=== PATIENT | male | born 1965 | race Two or more races ===

== ENCOUNTER 2019-08-03 01:24 | Inpatient (IN) | payer BC ==
[~2019-08-03] VITALS: Ht 167.6 cm; Wt 78.5 kg
[2019-08-03] MEDS ORDERED: SIMV-261 PO (04:12)
[2019-08-03] MEDS ORDERED: GLIM4 PO (04:12)
[2019-08-03] MEDS ORDERED: AZIT-84 PO (04:12)
[2019-08-03] MEDS ORDERED: METF-961 PO (04:12)
[2019-08-03] MEDS ORDERED: HYDR200T83 PO (04:12)
[2019-08-03] MEDS ORDERED: GABA-1181 PO (04:12)
[2019-08-03] MEDS ORDERED: PIOG30TA10 PO (04:12)
[2019-08-03] MEDS ORDERED: ASPI-1111 PO (04:12)
[2019-08-03 04:53] LABS: BASOPHILS % (AUTO) 0.3 % (0.0-2.0); EOSINOPHILS % (AUTO) 0 % (1.0-6.0); HEMATOCRIT 43.4 % (41-53); HEMOGLOBIN 14.6 g/dL (13.5-17.5); LYMPHOCYTES # (AUTO) 1.1 K/uL (1.0-4.8); LYMPHOCYTES % (AUTO) 18.2 % (22.0-44.0); MEAN CORPUSCULAR HEMOGLOBIN 30.5 pg (26.0-34.0); MEAN CORPUSCULAR HGB CONC 33.6 G/dL (31.0-37.0); MEAN CORPUSCULAR VOLUME 91 fL (80-100); MONOCYTES # (AUTO) 0.8 K/uL (0.1-1.0); MONOCYTES % (AUTO) 12.6 % (2.0-9.0); NEUTROPHILS # (AUTO) 4.2 K/uL (1.8-7.7); NEUTROPHILS % (AUTO) 68.9 % (40.0-70.0); PLATELET COUNT (AUTO) 319 K/uL (150-450); RED BLOOD CELL COUNT(AUTO) 4.78 MIL/uL (4.50-5.90); RED CELL DISTRIBUTION WIDTH 13.1 % (11.5-14.5)
[2019-08-03 04:57] LABS: D-DIMER 0.86 mg/L FEU (0.00-0.50); INR 1.1 (0.9-1.1); PROTHROMBIN TIME 11.3 SEC (9.4-11.6)
[2019-08-03 05:22] LABS: INFLUENZA TYPE A NEGATIVE FOR TYPE A (NEGATIVE); INFLUENZA TYPE B NEGATIVE FOR TYPE B (NEGATIVE)
[2019-08-03 05:27] LABS: ANION GAP 11 mmol/L (8-16); CALCIUM, TOTAL 8.6 mg/dL (8.8-10.5); CARBON DIOXIDE 26 mmol/L (22-29); CHLORIDE 98 mmol/L (98-107); CREATININE 0.87 mg/dL (0.60-1.30); GLOMERULAR FILTR. RATE CALC > 60 mL/min (>60); GLUCOSE,RANDOM 283 mg/dL (70-110); POTASSIUM 4.1 mmol/L (3.5-5.1); SODIUM SERUM 135 mmol/L (136-145); UREA NITROGEN, BLOOD 13 mg/dL (7-18)
[2019-08-03] MEDS ORDERED: CefTRIAXone 1 GM/DEXTROSE 50 ML IV ONE (05:45)
[2019-08-03] MEDS ORDERED: AZITHROMYCIN 500 MG/NS 250 ML IV ONE (05:45)
[2019-08-03 05:51] LABS: LACTIC ACID 2.3 mmol/L (0.4-2.0)
[2019-08-03 06:10] LABS: B-TYPE NATRIURETIC PEPTIDE 133 pg/mL (0-100)
[2019-08-03 06:11] LABS: ALANINE AMINOTRANSFERASE 109 U/L (12-78); ALBUMIN 2.4 g/dL (3.4-5.0); ALKALINE PHOSPHATASE 78 U/L (46-116); ASPARTATE AMINOTRANSFERASE 61 U/L (15-37); BILIRUBIN,TOTAL 0.4 mg/dL (0.1-1.0); C-REACTIVE PROTEIN QUANT 22.41 mg/dL (0.00-0.30); CREATINE KINASE, TOTAL ONLY 87 U/L (39-308); FERRITIN 4999 ng/mL (26-388); LACTATE DEHYDROGENASE 477 U/L (85-227); TOTAL PROTEIN, SERUM 7.2 g/dL (6.4-8.2)
[2019-08-03 08:00] VITALS: BP 120/80
[2019-08-03] MEDS ORDERED: DEXTROSE 50%-WATER 25 GM/50 ML SYRINGE IVP PRN (08:00)
[2019-08-03] MEDS: HYDROXYCHLOROQUINE SULFATE 200 MG TABLET PO SCH ×2 (08:20→21:07)
[2019-08-03] MEDS: FAMOTIDINE 20 MG TABLET PO SCH (09:00)
[2019-08-03] MEDS: DOCUSATE SODIUM 100 MG CAPSULE PO SCH ×2 (09:00→21:00)
[2019-08-03] MEDS: HEPARIN SODIUM,PORCINE 5,000 UNITS/ML VIAL SQ SCH ×2 (09:32→15:05)
[2019-08-03] MEDS: AZITHROMYCIN 500 MG/NS 250 ML IV SCH (09:32)
[2019-08-03 09:53] LABS: ABG A-A DIFF O2 588.4 mmHg (10-20.0); ABG BASE EXCESS -2.1 mmol/L (-2.0-3.0); ABG CARBOXYHEMOGLOBIN 0.7 % (0.0-1.5); ABG HCO3 23.8 mmol/L (22.0-26.0); ABG METHEMOGLOBIN 0.3 % (0.0-1.5); ABG OXYGEN CONTENT 19.5 mL/dL (15.0-23.0); ABG OXYGEN SATURATION 97.8 % (95.0-98.0); ABG OXYHEMOGLOBIN 96.8 % (94.0-100.0); ABG PCO2 29 mmHg (35-45); ABG TOTAL HEMOGLOBIN 14.3 G/dL (12.0-18.0); PO2, ARTERIAL BG 96.1 mmHg (84.0-92.0); SOURCE, BLOOD GAS ARTERIAL; TEMPERATURE, FAHRENHEIT, BG 98.6 FAHREN (96.0-98.6)
[2019-08-03 09:54] LABS: SITE, BLOOD GAS RT RADIAL
[2019-08-03 09:55] LABS: O2 DEVICE,BLOOD GAS NRB (ROOM AIR)
[2019-08-03] MEDS: ZINC SULFATE 220 MG CAPSULE PO SCH (10:06)
[2019-08-03 10:17] LABS: GLUCOSE,POINT OF CARE 285 MG/DL (70-110)
[2019-08-03 12:00] VITALS: BP 120/58
[2019-08-03 13:03] LABS: GLUCOSE,POINT OF CARE 263 MG/DL (70-110)
[2019-08-03 14:44] LABS: GLUCOSE,POINT OF CARE 278 MG/DL (70-110)
[2019-08-03] MEDS: INSULIN LISPRO 100 UNITS/ML SQ PRN ×2 (15:01→21:17)
[2019-08-03 16:24] VITALS: BP 138/70
[2019-08-03 20:30] VITALS: BP 135/68
[2019-08-04 04:00] VITALS: BP 119/69
[2019-08-04 05:04] LABS: GLUCOMETER DEV NAME(LOC) 5S.1; GLUCOSE,POINT OF CARE 311 MG/DL (70-110)
[2019-08-04] MEDS: INSULIN LISPRO 100 UNITS/ML SQ PRN ×4 (06:29→20:35)
[2019-08-04 07:56] VITALS: BP_SYST 121; BP_SYST 21; BP_DIAS 69
[2019-08-04] MEDS: HEPARIN SODIUM,PORCINE 5,000 UNITS/ML VIAL SQ SCH ×4 (08:00→23:53)
[2019-08-04] MEDS: DOCUSATE SODIUM 100 MG CAPSULE PO SCH ×2 (09:00→21:00)
[2019-08-04 10:07] LABS: ALANINE AMINOTRANSFERASE 83 U/L (12-78); ALBUMIN 2.1 g/dL (3.4-5.0); ALKALINE PHOSPHATASE 84 U/L (46-116); ANION GAP 9 mmol/L (8-16); ASPARTATE AMINOTRANSFERASE 38 U/L (15-37); BILIRUBIN,TOTAL 0.5 mg/dL (0.1-1.0); C-REACTIVE PROTEIN QUANT 19.64 mg/dL (0.00-0.30); CALCIUM, TOTAL 8.5 mg/dL (8.8-10.5); CARBON DIOXIDE 26 mmol/L (22-29); CHLORIDE 100 mmol/L (98-107); FERRITIN 4409 ng/mL (26-388); GLOMERULAR FILTR. RATE CALC > 60 mL/min (>60); GLUCOSE,RANDOM 248 mg/dL (70-110); LACTATE DEHYDROGENASE 446 U/L (85-227); POTASSIUM 3.9 mmol/L (3.5-5.1); SODIUM SERUM 135 mmol/L (136-145); TOTAL PROTEIN, SERUM 6.7 g/dL (6.4-8.2); UREA NITROGEN, BLOOD 10 mg/dL (7-18)
[2019-08-04] MEDS: FAMOTIDINE 20 MG TABLET PO SCH (10:19)
[2019-08-04] MEDS: AZITHROMYCIN 500 MG/NS 250 ML IV SCH (10:19)
[2019-08-04] MEDS: ZINC SULFATE 220 MG CAPSULE PO SCH (10:19)
[2019-08-04] MEDS ORDERED: SODIUM CHLORIDE 0.9% 250 ML IV ONE (10:27)
[2019-08-04 10:45] LABS: BASOPHILS % (AUTO) 0.1 % (0.0-2.0); EOSINOPHILS % (AUTO) 0.1 % (1.0-6.0); HEMATOCRIT 42.1 % (41-53); HEMOGLOBIN 14.6 g/dL (13.5-17.5); LYMPHOCYTES # (AUTO) 1.4 K/uL (1.0-4.8); LYMPHOCYTES % (AUTO) 13.6 % (22.0-44.0); MEAN CORPUSCULAR HEMOGLOBIN 31.2 pg (26.0-34.0); MEAN CORPUSCULAR HGB CONC 34.6 G/dL (31.0-37.0); MEAN CORPUSCULAR VOLUME 90 fL (80-100); MONOCYTES # (AUTO) 1.3 K/uL (0.1-1.0); MONOCYTES % (AUTO) 12.2 % (2.0-9.0); NEUTROPHILS # (AUTO) 7.7 K/uL (1.8-7.7); PLATELET COUNT (AUTO) 393 K/uL (150-450); RED BLOOD CELL COUNT(AUTO) 4.67 MIL/uL (4.50-5.90); RED CELL DISTRIBUTION WIDTH 12.9 % (11.5-14.5)
[2019-08-04 12:00] VITALS: BP 130/72
[2019-08-04 15:09] VITALS: BP 135/73
[2019-08-04 15:14] LABS: GLUCOMETER DEV NAME(LOC) 5N.3; GLUCOSE,POINT OF CARE 301 MG/DL (70-110)
[2019-08-04 15:14] LABS: GLUCOMETER DEV NAME(LOC) 5N.3; GLUCOSE,POINT OF CARE 242 MG/DL (70-110)
[2019-08-04 15:14] LABS: GLUCOMETER DEV NAME(LOC) 5N.3; GLUCOSE,POINT OF CARE 275 MG/DL (70-110)
[2019-08-04] MEDS: ACETAMINOPHEN 325 MG TABLET PO PRN (18:01)
[2019-08-04] MEDS: MetFORMIN HCL 850 MG TABLET PO SCH (18:39)
[2019-08-04] MEDS: HYDROXYCHLOROQUINE SULFATE 200 MG TABLET PO SCH ×2 (20:02→20:47)
[2019-08-04 21:58] VITALS: BP 143/73
[2019-08-05 00:02] LABS: GLUCOMETER DEV NAME(LOC) 5N.3; GLUCOSE,POINT OF CARE 266 MG/DL (70-110)
[2019-08-05 00:02] LABS: GLUCOMETER DEV NAME(LOC) 5N.3; GLUCOSE,POINT OF CARE 264 MG/DL (70-110)
[2019-08-05 00:03] VITALS: BP 138/69
[2019-08-05 04:01] VITALS: BP 138/72
[2019-08-05] MEDS: INSULIN LISPRO 100 UNITS/ML SQ PRN ×4 (05:47→21:52)
[2019-08-05] MEDS: MetFORMIN HCL 850 MG TABLET PO SCH ×2 (08:10→18:07)
[2019-08-05] MEDS: HEPARIN SODIUM,PORCINE 5,000 UNITS/ML VIAL SQ SCH ×2 (08:10→18:08)
[2019-08-05] MEDS: DOCUSATE SODIUM 100 MG CAPSULE PO SCH ×2 (08:10→21:44)
[2019-08-05] MEDS: AZITHROMYCIN 500 MG/NS 250 ML IV SCH (08:10)
[2019-08-05] MEDS: FAMOTIDINE 20 MG TABLET PO SCH (08:10)
[2019-08-05] MEDS: ZINC SULFATE 220 MG CAPSULE PO SCH (08:10)
[2019-08-05] MEDS: HYDROXYCHLOROQUINE SULFATE 200 MG TABLET PO SCH ×2 (08:11→21:44)
[2019-08-05 09:34] LABS: ALANINE AMINOTRANSFERASE 76 U/L (12-78); ALBUMIN 1.9 g/dL (3.4-5.0); ALKALINE PHOSPHATASE 98 U/L (46-116); ANION GAP 11 mmol/L (8-16); ASPARTATE AMINOTRANSFERASE 38 U/L (15-37); BILIRUBIN,TOTAL 0.6 mg/dL (0.1-1.0); CALCIUM, TOTAL 8.6 mg/dL (8.8-10.5); CARBON DIOXIDE 24 mmol/L (22-29); CHLORIDE 98 mmol/L (98-107); CREATININE 0.86 mg/dL (0.60-1.30); GLOMERULAR FILTR. RATE CALC > 60 mL/min (>60); GLUCOSE,RANDOM 224 mg/dL (70-110); LACTATE DEHYDROGENASE 465 U/L (85-227); POTASSIUM 3.9 mmol/L (3.5-5.1); SODIUM SERUM 133 mmol/L (136-145); TOTAL PROTEIN, SERUM 6.8 g/dL (6.4-8.2); UREA NITROGEN, BLOOD 9 mg/dL (7-18)
[2019-08-05 10:56] LABS: C-REACTIVE PROTEIN QUANT 26.65 mg/dL (0.00-0.30)
[2019-08-05] MEDS: ACETAMINOPHEN 325 MG TABLET PO PRN (10:56)
[2019-08-05 11:28] LABS: FERRITIN 4492 ng/mL (26-388)
[2019-08-05 12:29] LABS: GLUCOMETER DEV NAME(LOC) 5N.3; GLUCOSE,POINT OF CARE 239 MG/DL (70-110)
[2019-08-05 16:05] VITALS: BP 144/74
[2019-08-05 20:00] VITALS: BP 136/75
[2019-08-06] VITALS (28 sets, daily range): BP systolic 100–180; BP diastolic 51–83
[2019-08-06] MEDS: ACETAMINOPHEN 325 MG TABLET PO PRN (00:22)
[2019-08-06] MEDS: HEPARIN SODIUM,PORCINE 5,000 UNITS/ML VIAL SQ SCH ×3 (00:22→16:35)
[2019-08-06 04:13] LABS: SOURCE, BLOOD GAS ARTERIAL; TEMPERATURE, FAHRENHEIT, BG 98.7 FAHREN (96.0-98.6)
[2019-08-06 04:15] LABS: ABG A-A DIFF O2 632.6 mmHg (10-20.0); ABG BASE EXCESS -1.3 mmol/L (-2.0-3.0); ABG CARBOXYHEMOGLOBIN 0.8 % (0.0-1.5); ABG HCO3 23.9 mmol/L (22.0-26.0); ABG METHEMOGLOBIN 0.1 % (0.0-1.5); ABG OXYGEN CONTENT 16.9 mL/dL (15.0-23.0); ABG OXYGEN SATURATION 85.4 % (95.0-98.0); ABG OXYHEMOGLOBIN 84.6 % (94.0-100.0); ABG PCO2 31 mmHg (35-45); ABG TOTAL HEMOGLOBIN 14.2 G/dL (12.0-18.0); PO2, ARTERIAL BG 48.7 mmHg (84.0-92.0)
[2019-08-06 04:17] LABS: O2 DEVICE,BLOOD GAS HI FL CANNULA (ROOM AIR); SITE, BLOOD GAS RT RADIAL
[2019-08-06] MEDS ORDERED: CISATRACURIUM BESYLATE 20 MG in DEXTROSE 5%-WATER 90 ML IV PRN (06:00)
[2019-08-06 06:02] LABS: ABG A-A DIFF O2 584.2 mmHg (10-20.0); ABG BASE EXCESS -4.7 mmol/L (-2.0-3.0); ABG CARBOXYHEMOGLOBIN 0.2 % (0.0-1.5); ABG HCO3 21.5 mmol/L (22.0-26.0); ABG METHEMOGLOBIN 0.1 % (0.0-1.5); ABG OXYGEN CONTENT 17.4 mL/dL (15.0-23.0); ABG OXYGEN SATURATION 97.2 % (95.0-98.0); ABG OXYHEMOGLOBIN 96.9 % (94.0-100.0); ABG PCO2 30 mmHg (35-45); ABG PH 7.437 (7.35-7.450); ABG TOTAL HEMOGLOBIN 12.7 G/dL (12.0-18.0); PO2, ARTERIAL BG 99.3 mmHg (84.0-92.0); SOURCE, BLOOD GAS ARTERIAL; TEMPERATURE, FAHRENHEIT, BG 98.6 FAHREN (96.0-98.6)
[2019-08-06] MEDS ORDERED: PROPOFOL 1000 MG/ISO-OSM 100 ML IV ONE (06:03)
[2019-08-06 06:27] LABS: GLUCOMETER DEV NAME(LOC) 5S.1; GLUCOSE,POINT OF CARE 217 MG/DL (70-110)
[2019-08-06] MEDS: PROPOFOL 1000 MG/ISO-OSM 100 ML IV PRN ×4 (06:36→22:10)
[2019-08-06] MEDS: CISATRACURIUM BESYLATE 50 MG in DEXTROSE 5%-WATER 245 ML IV PRN ×4 (06:37→22:12)
[2019-08-06 07:12] LABS: GLUCOSE,POINT OF CARE 269 MG/DL (70-110)
[2019-08-06] MEDS ORDERED: MIDAZOLAM HCL 5 MG/ML VIAL ONE (07:13)
[2019-08-06] MEDS ORDERED: MIDAZOLAM HCL 5 MG/ML VIAL IVP ONE (07:15)
[2019-08-06 07:42] LABS: BASOPHILS % (AUTO) 0.3 % (0.0-2.0); EOSINOPHILS % (AUTO) 0.1 % (1.0-6.0); HEMATOCRIT 39.4 % (41-53); HEMOGLOBIN 13.3 g/dL (13.5-17.5); LYMPHOCYTES # (AUTO) 0.7 K/uL (1.0-4.8); LYMPHOCYTES % (AUTO) 4.2 % (22.0-44.0); MEAN CORPUSCULAR HEMOGLOBIN 30.3 pg (26.0-34.0); MEAN CORPUSCULAR HGB CONC 33.7 G/dL (31.0-37.0); MEAN CORPUSCULAR VOLUME 90 fL (80-100); MONOCYTES # (AUTO) 1.3 K/uL (0.1-1.0); MONOCYTES % (AUTO) 8.1 % (2.0-9.0); NEUTROPHILS # (AUTO) 14.2 K/uL (1.8-7.7); PLATELET COUNT (AUTO) 415 K/uL (150-450); RED BLOOD CELL COUNT(AUTO) 4.39 MIL/uL (4.50-5.90)
[2019-08-06 07:46] LABS: NEUTROPHILS % (AUTO) 87.3 % (40.0-70.0)
[2019-08-06] MEDS: MetFORMIN HCL 850 MG TABLET PO SCH (08:00)
[2019-08-06 08:35] LABS: ALANINE AMINOTRANSFERASE 63 U/L (12-78); ALBUMIN 1.7 g/dL (3.4-5.0); ALKALINE PHOSPHATASE 112 U/L (46-116); ANION GAP 12 mmol/L (8-16); ASPARTATE AMINOTRANSFERASE 33 U/L (15-37); CALCIUM, TOTAL 8.2 mg/dL (8.8-10.5); CARBON DIOXIDE 23 mmol/L (22-29); CHLORIDE 98 mmol/L (98-107); CREATININE 0.79 mg/dL (0.60-1.30); FERRITIN 3791 ng/mL (26-388); GLOMERULAR FILTR. RATE CALC > 60 mL/min (>60); GLUCOSE,RANDOM 292 mg/dL (70-110); LACTATE DEHYDROGENASE 507 U/L (85-227); POTASSIUM 4.2 mmol/L (3.5-5.1); SODIUM SERUM 133 mmol/L (136-145); TOTAL PROTEIN, SERUM 6.7 g/dL (6.4-8.2); UREA NITROGEN, BLOOD 9 mg/dL (7-18)
[2019-08-06 08:46] LABS: C-REACTIVE PROTEIN QUANT 32.18 mg/dL (0.00-0.30)
[2019-08-06] MEDS ORDERED: FentaNYL CITRATE PF 500 MCG in DEXTROSE 5%-WATER 90 ML IV STA (08:59)
[2019-08-06] MEDS: FAMOTIDINE 20 MG TABLET PO SCH (09:00)
[2019-08-06] MEDS: DOCUSATE SODIUM 100 MG CAPSULE PO SCH ×2 (09:00→21:00)
[2019-08-06 09:03] LABS: O2 DEVICE,BLOOD GAS VENTILATOR (ROOM AIR); SITE, BLOOD GAS ARTERIAL LINE
[2019-08-06 09:04] LABS: VT, ABG 550 ml
[2019-08-06] MEDS: AZITHROMYCIN 500 MG/NS 250 ML IV SCH (09:06)
[2019-08-06 09:09] LABS: PEEP,BG 10 cm H2O; SPONTANEOUS VT, BG 559 ml
[2019-08-06] MEDS: FentaNYL CITRATE PF 500 MCG in DEXTROSE 5%-WATER 90 ML IV PRN ×3 (09:33→22:11)
[2019-08-06] MEDS: INSULIN GLARGINE,HUM.REC.ANLOG 100 UNITS/ML SQ SCH (10:24)
[2019-08-06] MEDS ORDERED: PROPOFOL 1% 20 ML VIAL IVP ONE (12:00)
[2019-08-06] MEDS ORDERED: ROCURONIUM BROMIDE 10 MG/ML 5 ML VIAL IVP ONE (12:00)
[2019-08-06] MEDS ORDERED: LIDOCAINE/PF 2% 5 ML SYRINGE IVP ONE (12:00)
[2019-08-06] MEDS ORDERED: 0.9% SODIUM CHLORIDE 10 ML VIAL IV ONE (12:00)
[2019-08-06 12:19] LABS: GLUCOMETER DEV NAME(LOC) 5N.3; GLUCOSE,POINT OF CARE 269 MG/DL (70-110)
[2019-08-06 12:20] LABS: GLUCOMETER DEV NAME(LOC) 5N.3; GLUCOSE,POINT OF CARE 278 MG/DL (70-110)
[2019-08-06] MEDS ORDERED: SODIUM CHLORIDE 0.9% 250 ML IV ONE (12:46)
[2019-08-06 14:13] LABS: GLUCOSE,POINT OF CARE 323 MG/DL (70-110)
[2019-08-06] MEDS: HydrALAZINE HCL 20 MG/ML VIAL IVP PRN (15:10)
[2019-08-06 17:03] LABS: GLUCOSE,POINT OF CARE 331 MG/DL (70-110)
[2019-08-06 21:39] LABS: GLUCOSE,POINT OF CARE 324 MG/DL (70-110)
[2019-08-06] MEDS: ENOXAPARIN SODIUM 40 MG/0.4 ML PF SYRINGE SQ SCH (22:27)
[2019-08-06] MEDS: INSULIN LISPRO 100 UNITS/ML SQ PRN (22:28)
[2019-08-07] VITALS (24 sets, daily range): BP systolic 106–166; BP diastolic 43–74
[2019-08-07] MEDS: ACETAMINOPHEN 325 MG TABLET PO PRN ×2 (00:15→17:30)
[2019-08-07] MEDS: PROPOFOL 1000 MG/ISO-OSM 100 ML IV PRN ×2 (01:21→06:21)
[2019-08-07] MEDS: FentaNYL CITRATE PF 500 MCG in DEXTROSE 5%-WATER 90 ML IV PRN ×2 (01:39→06:46)
[2019-08-07 06:57] LABS: GLUCOSE,POINT OF CARE 319 MG/DL (70-110)
[2019-08-07] MEDS: INSULIN LISPRO 100 UNITS/ML SQ PRN ×3 (06:57→22:29)
[2019-08-07 07:19] LABS: ALANINE AMINOTRANSFERASE 45 U/L (12-78); ALBUMIN 1.3 g/dL (3.4-5.0); ALKALINE PHOSPHATASE 114 U/L (46-116); ANION GAP 9 mmol/L (8-16); ASPARTATE AMINOTRANSFERASE 29 U/L (15-37); BILIRUBIN,TOTAL 0.9 mg/dL (0.1-1.0); CALCIUM, TOTAL 8.1 mg/dL (8.8-10.5); CARBON DIOXIDE 28 mmol/L (22-29); CHLORIDE 97 mmol/L (98-107); CREATININE 0.76 mg/dL (0.60-1.30); FERRITIN 3325 ng/mL (26-388); GLOMERULAR FILTR. RATE CALC > 60 mL/min (>60); GLUCOSE,RANDOM 323 mg/dL (70-110); LACTATE DEHYDROGENASE 326 U/L (85-227); POTASSIUM 4.3 mmol/L (3.5-5.1); SODIUM SERUM 134 mmol/L (136-145); TOTAL PROTEIN, SERUM 6.2 g/dL (6.4-8.2); UREA NITROGEN, BLOOD 12 mg/dL (7-18)
[2019-08-07 07:31] LABS: C-REACTIVE PROTEIN QUANT 34.53 mg/dL (0.00-0.30)
[2019-08-07] MEDS: DOCUSATE SODIUM 100 MG CAPSULE PO SCH ×2 (09:00→21:00)
[2019-08-07] MEDS: FAMOTIDINE 20 MG TABLET PO SCH (09:53)
[2019-08-07] MEDS: INSULIN GLARGINE,HUM.REC.ANLOG 100 UNITS/ML SQ SCH (09:55)
[2019-08-07] MEDS: ENOXAPARIN SODIUM 40 MG/0.4 ML PF SYRINGE SQ SCH (09:56)
[2019-08-07 10:41] LABS: ABG A-A DIFF O2 583.3 mmHg (10-20.0); ABG BASE EXCESS 5.5 mmol/L (-2.0-3.0); ABG CARBOXYHEMOGLOBIN 0.7 % (0.0-1.5); ABG HCO3 28.4 mmol/L (22.0-26.0); ABG METHEMOGLOBIN 0.3 % (0.0-1.5); ABG OXYGEN CONTENT 16.6 mL/dL (15.0-23.0); ABG OXYGEN SATURATION 94.6 % (95.0-98.0); ABG OXYHEMOGLOBIN 93.7 % (94.0-100.0); ABG PCO2 52 mmHg (35-45); ABG PH 7.388 (7.35-7.450); ABG TOTAL HEMOGLOBIN 12.6 G/dL (12.0-18.0); PO2, ARTERIAL BG 76.8 mmHg (84.0-92.0); SOURCE, BLOOD GAS ARTERIAL; TEMPERATURE, FAHRENHEIT, BG 99.3 FAHREN (96.0-98.6)
[2019-08-07 10:42] LABS: O2 DEVICE,BLOOD GAS VENTILATOR (ROOM AIR); SITE, BLOOD GAS A LINE
[2019-08-07 10:43] LABS: PEEP,BG 8 cm H2O; SPONTANEOUS VT, BG 425 ml; VT, ABG 450 ml
[2019-08-07 16:37] LABS: ABG A-A DIFF O2 492.4 mmHg (10-20.0); ABG BASE EXCESS -1.6 mmol/L (-2.0-3.0); ABG CARBOXYHEMOGLOBIN 0.3 % (0.0-1.5); ABG HCO3 22.9 mmol/L (22.0-26.0); ABG METHEMOGLOBIN 0.3 % (0.0-1.5); ABG OXYGEN CONTENT 18.2 mL/dL (15.0-23.0); ABG OXYGEN SATURATION 98.7 % (95.0-98.0); ABG OXYHEMOGLOBIN 98.1 % (94.0-100.0); ABG PCO2 51 mmHg (35-45); ABG PH 7.302 (7.35-7.450); PO2, ARTERIAL BG 164.2 mmHg (84.0-92.0); SOURCE, BLOOD GAS ARTERIAL; TEMPERATURE, FAHRENHEIT, BG 101.8 FAHREN (96.0-98.6)
[2019-08-07 17:10] LABS: O2 DEVICE,BLOOD GAS VENTILATOR (ROOM AIR); SITE, BLOOD GAS A LINE; VT, ABG 450 ml
[2019-08-07 17:11] LABS: PEEP,BG 8 cm H2O; SPONTANEOUS VT, BG 441 ml
[2019-08-07 18:30] LABS: BASOPHILS % (AUTO) 0.1 % (0.0-2.0); EOSINOPHILS % (AUTO) 0.3 % (1.0-6.0); HEMATOCRIT 38.5 % (41-53); HEMOGLOBIN 12.7 g/dL (13.5-17.5); LYMPHOCYTES # (AUTO) 0.3 K/uL (1.0-4.8); LYMPHOCYTES % (AUTO) 2.5 % (22.0-44.0); MEAN CORPUSCULAR HEMOGLOBIN 30.2 pg (26.0-34.0); MEAN CORPUSCULAR VOLUME 92 fL (80-100); MONOCYTES % (AUTO) 7.4 % (2.0-9.0); NEUTROPHILS # (AUTO) 11.7 K/uL (1.8-7.7); PLATELET COUNT (AUTO) 308 K/uL (150-450); RED CELL DISTRIBUTION WIDTH 13.4 % (11.5-14.5)
[2019-08-07 18:35] LABS: NEUTROPHILS % (AUTO) 89.7 % (40.0-70.0)
[2019-08-07] MEDS ORDERED: INSULIN GLARGINE,HUM.REC.ANLOG 100 UNITS/ML SQ SCH (21:00)
[2019-08-07 21:23] LABS: GLUCOSE,POINT OF CARE 303 MG/DL (70-110)
[2019-08-07] MEDS: CefTRIAXone 1 GM/DEXTROSE 50 ML IV SCH (22:19)
[2019-08-07] MEDS: ENOXAPARIN SODIUM 100 MG/ML PF SYRINGE SQ SCH (22:27)
[2019-08-08] VITALS (26 sets, daily range): BP systolic 96–186; BP diastolic 45–73
[2019-08-08 06:56] LABS: GLUCOSE,POINT OF CARE 266 MG/DL (70-110)
[2019-08-08] MEDS: DOCUSATE SODIUM 100 MG CAPSULE PO SCH ×2 (09:00→21:00)
[2019-08-08] MEDS: INSULIN GLARGINE,HUM.REC.ANLOG 100 UNITS/ML SQ SCH ×2 (09:12→22:16)
[2019-08-08] MEDS: FAMOTIDINE 20 MG TABLET PO SCH (09:12)
[2019-08-08 09:16] LABS: ANION GAP 8 mmol/L (8-16); CALCIUM, TOTAL 8.3 mg/dL (8.8-10.5); CARBON DIOXIDE 30 mmol/L (22-29); CHLORIDE 95 mmol/L (98-107); CREATININE 0.75 mg/dL (0.60-1.30); FERRITIN 3519 ng/mL (26-388); GLOMERULAR FILTR. RATE CALC > 60 mL/min (>60); GLUCOSE,RANDOM 309 mg/dL (70-110); LACTATE DEHYDROGENASE 304 U/L (85-227); POTASSIUM 4.4 mmol/L (3.5-5.1); SODIUM SERUM 133 mmol/L (136-145); UREA NITROGEN, BLOOD 15 mg/dL (7-18)
[2019-08-08 09:33] LABS: C-REACTIVE PROTEIN QUANT 32.53 mg/dL (0.00-0.30)
[2019-08-08] MEDS: FentaNYL CITRATE PF 500 MCG in DEXTROSE 5%-WATER 90 ML IV PRN ×2 (10:38→20:51)
[2019-08-08] MEDS: ENOXAPARIN SODIUM 100 MG/ML PF SYRINGE SQ SCH ×2 (11:20→22:13)
[2019-08-08 11:31] LABS: ABG A-A DIFF O2 266.7 mmHg (10-20.0); ABG BASE EXCESS 6.8 mmol/L (-2.0-3.0); ABG CARBOXYHEMOGLOBIN 0.7 % (0.0-1.5); ABG HCO3 29.4 mmol/L (22.0-26.0); ABG METHEMOGLOBIN 0.1 % (0.0-1.5); ABG OXYGEN CONTENT 18.5 mL/dL (15.0-23.0); ABG OXYGEN SATURATION 92.5 % (95.0-98.0); ABG OXYHEMOGLOBIN 91.8 % (94.0-100.0); ABG PCO2 52 mmHg (35-45); ABG PH 7.403 (7.35-7.450); ABG TOTAL HEMOGLOBIN 14.3 G/dL (12.0-18.0); SOURCE, BLOOD GAS ARTERIAL; TEMPERATURE, FAHRENHEIT, BG 99.5 FAHREN (96.0-98.6)
[2019-08-08 11:40] LABS: O2 DEVICE,BLOOD GAS VENTILATOR (ROOM AIR); PEEP,BG 8 cm H2O; SITE, BLOOD GAS ARTERIAL LINE; SPONTANEOUS VT, BG 488 ml; VT, ABG 450 ml
[2019-08-08] MEDS: CISATRACURIUM BESYLATE 50 MG in DEXTROSE 5%-WATER 245 ML IV PRN ×3 (11:42→22:07)
[2019-08-08 12:39] LABS: GLUCOSE,POINT OF CARE 300 MG/DL (70-110)
[2019-08-08 12:39] LABS: GLUCOSE,POINT OF CARE 282 MG/DL (70-110)
[2019-08-08] MEDS: CefTRIAXone 1 GM/DEXTROSE 50 ML IV SCH (18:09)
[2019-08-08] MEDS: INSULIN LISPRO 100 UNITS/ML SQ PRN ×2 (19:57→22:17)
[2019-08-08 20:03] LABS: GLUCOSE,POINT OF CARE 333 MG/DL (70-110)
[2019-08-08] MEDS: PROPOFOL 1000 MG/ISO-OSM 100 ML IV PRN (20:50)
[2019-08-08 21:32] LABS: GLUCOSE,POINT OF CARE 299 MG/DL (70-110)
[2019-08-09] VITALS (34 sets, daily range): BP systolic 121–170; BP diastolic 59–82
[2019-08-09] MEDS: PROPOFOL 1000 MG/ISO-OSM 100 ML IV PRN ×5 (00:07→16:13)
[2019-08-09] MEDS: FentaNYL CITRATE PF 500 MCG in DEXTROSE 5%-WATER 90 ML IV PRN ×6 (01:00→23:14)
[2019-08-09] MEDS: CISATRACURIUM BESYLATE 50 MG in DEXTROSE 5%-WATER 245 ML IV PRN ×4 (03:59→16:13)
[2019-08-09] MEDS ORDERED: PANTOPRAZOLE SODIUM 40 MG/VIAL IVP SCH ×2 (04:00→09:00)
[2019-08-09 06:34] LABS: GLUCOSE,POINT OF CARE 266 MG/DL (70-110)
[2019-08-09 06:34] LABS: GLUCOSE,POINT OF CARE 305 MG/DL (70-110)
[2019-08-09 07:03] LABS: BASOPHILS % (AUTO) 0.8 % (0.0-2.0); EOSINOPHILS % (AUTO) 1.9 % (1.0-6.0); HEMATOCRIT 36.2 % (41-53); LYMPHOCYTES # (AUTO) 0.6 K/uL (1.0-4.8); LYMPHOCYTES % (AUTO) 6.3 % (22.0-44.0); MEAN CORPUSCULAR HEMOGLOBIN 30.5 pg (26.0-34.0); MEAN CORPUSCULAR HGB CONC 33.2 G/dL (31.0-37.0); MEAN CORPUSCULAR VOLUME 92 fL (80-100); MONOCYTES # (AUTO) 1.1 K/uL (0.1-1.0); NEUTROPHILS # (AUTO) 7.1 K/uL (1.8-7.7); PLATELET COUNT (AUTO) 303 K/uL (150-450); RED BLOOD CELL COUNT(AUTO) 3.93 MIL/uL (4.50-5.90); RED CELL DISTRIBUTION WIDTH 13.5 % (11.5-14.5)
[2019-08-09] MEDS: INSULIN LISPRO 100 UNITS/ML SQ PRN ×3 (07:12→18:20)
[2019-08-09 08:02] LABS: ALANINE AMINOTRANSFERASE 56 U/L (12-78); ALBUMIN 1.2 g/dL (3.4-5.0); ALKALINE PHOSPHATASE 90 U/L (46-116); ANION GAP 4 mmol/L (8-16); ASPARTATE AMINOTRANSFERASE 52 U/L (15-37); BILIRUBIN,TOTAL 1.4 mg/dL (0.1-1.0); CALCIUM, TOTAL 8.1 mg/dL (8.8-10.5); CARBON DIOXIDE 31 mmol/L (22-29); CHLORIDE 95 mmol/L (98-107); CREATININE 0.72 mg/dL (0.60-1.30); FERRITIN 4121 ng/mL (26-388); GLOMERULAR FILTR. RATE CALC > 60 mL/min (>60); GLUCOSE,RANDOM 287 mg/dL (70-110); LACTATE DEHYDROGENASE 253 U/L (85-227); POTASSIUM 4.3 mmol/L (3.5-5.1); SODIUM SERUM 130 mmol/L (136-145); TOTAL PROTEIN, SERUM 6.6 g/dL (6.4-8.2); UREA NITROGEN, BLOOD 11 mg/dL (7-18)
[2019-08-09 08:18] LABS: C-REACTIVE PROTEIN QUANT 26.31 mg/dL (0.00-0.30)
[2019-08-09] MEDS: DOCUSATE SODIUM 100 MG CAPSULE PO SCH ×2 (09:00→21:00)
[2019-08-09] MEDS: ENOXAPARIN SODIUM 100 MG/ML PF SYRINGE SQ SCH ×2 (09:35→21:58)
[2019-08-09] MEDS: PANTOPRAZOLE SODIUM 40 MG/VIAL IVP SCH ×2 (13:11→22:00)
[2019-08-09 14:14] LABS: GLUCOSE,POINT OF CARE 256 MG/DL (70-110)
[2019-08-09 15:54] LABS: ABG CARBOXYHEMOGLOBIN 0.6 % (0.0-1.5); ABG HCO3 29.6 mmol/L (22.0-26.0); ABG METHEMOGLOBIN 0.1 % (0.0-1.5); ABG OXYGEN CONTENT 18.1 mL/dL (15.0-23.0); ABG OXYHEMOGLOBIN 95.3 % (94.0-100.0); ABG PCO2 53 mmHg (35-45); ABG TOTAL HEMOGLOBIN 13.5 G/dL (12.0-18.0); PO2, ARTERIAL BG 84.1 mmHg (84.0-92.0); SOURCE, BLOOD GAS ARTERIAL
[2019-08-09 15:55] LABS: O2 DEVICE,BLOOD GAS VENTILATOR (ROOM AIR); SITE, BLOOD GAS A-LINE
[2019-08-09 15:56] LABS: PEEP,BG 8 cm H2O; VT, ABG 450 ml
[2019-08-09 16:56] LABS: HEMOGLOBIN 11.9 g/dL (13.5-17.5)
[2019-08-09] MEDS: CefTRIAXone 1 GM/DEXTROSE 50 ML IV SCH (18:20)
[2019-08-09 21:37] LABS: GLUCOSE,POINT OF CARE 247 MG/DL (70-110)
[2019-08-09] MEDS: INSULIN GLARGINE,HUM.REC.ANLOG 100 UNITS/ML SQ SCH (22:02)
[2019-08-09] MEDS: ACETAMINOPHEN 325 MG TABLET PO PRN (23:17)
[2019-08-10] VITALS (33 sets, daily range): BP systolic 136–182; BP diastolic 59–88
[2019-08-10] MEDS: PROPOFOL 1000 MG/ISO-OSM 100 ML IV PRN ×2 (02:41→06:01)
[2019-08-10] MEDS: DOCUSATE SODIUM 100 MG CAPSULE PO SCH ×2 (03:55→09:00)
[2019-08-10 06:11] LABS: EOSINOPHILS % (AUTO) 1.9 % (1.0-6.0); HEMATOCRIT 34.6 % (41-53); HEMOGLOBIN 11.7 g/dL (13.5-17.5); LYMPHOCYTES # (AUTO) 1.1 K/uL (1.0-4.8); LYMPHOCYTES % (AUTO) 10.8 % (22.0-44.0); MEAN CORPUSCULAR HEMOGLOBIN 30.7 pg (26.0-34.0); MEAN CORPUSCULAR HGB CONC 33.8 G/dL (31.0-37.0); MEAN CORPUSCULAR VOLUME 91 fL (80-100); MONOCYTES # (AUTO) 1.2 K/uL (0.1-1.0); MONOCYTES % (AUTO) 11.7 % (2.0-9.0); NEUTROPHILS # (AUTO) 7.5 K/uL (1.8-7.7); NEUTROPHILS % (AUTO) 74.6 % (40.0-70.0); PLATELET COUNT (AUTO) 306 K/uL (150-450); RED BLOOD CELL COUNT(AUTO) 3.81 MIL/uL (4.50-5.90); RED CELL DISTRIBUTION WIDTH 12.9 % (11.5-14.5)
[2019-08-10] MEDS: FentaNYL CITRATE PF 500 MCG in DEXTROSE 5%-WATER 90 ML IV PRN ×5 (06:40→22:44)
[2019-08-10 06:54] LABS: GLUCOSE,POINT OF CARE 236 MG/DL (70-110)
[2019-08-10 06:57] LABS: ALANINE AMINOTRANSFERASE 60 U/L (12-78); ALBUMIN 1.1 g/dL (3.4-5.0); ALKALINE PHOSPHATASE 92 U/L (46-116); ANION GAP 8 mmol/L (8-16); BILIRUBIN,TOTAL 1.9 mg/dL (0.1-1.0); C-REACTIVE PROTEIN QUANT 16.72 mg/dL (0.00-0.30); CALCIUM, TOTAL 7.2 mg/dL (8.8-10.5); CARBON DIOXIDE 26 mmol/L (22-29); CHLORIDE 103 mmol/L (98-107); CREATININE 0.65 mg/dL (0.60-1.30); GLOMERULAR FILTR. RATE CALC > 60 mL/min (>60); GLUCOSE,RANDOM 216 mg/dL (70-110); POTASSIUM 3.5 mmol/L (3.5-5.1); SODIUM SERUM 137 mmol/L (136-145); TOTAL PROTEIN, SERUM 5.8 g/dL (6.4-8.2); UREA NITROGEN, BLOOD 8 mg/dL (7-18)
[2019-08-10 07:12] LABS: ASPARTATE AMINOTRANSFERASE 65 U/L (15-37)
[2019-08-10] MEDS: INSULIN GLARGINE,HUM.REC.ANLOG 100 UNITS/ML SQ SCH ×2 (09:00→22:06)
[2019-08-10] MEDS: PANTOPRAZOLE SODIUM 40 MG/VIAL IVP SCH ×2 (09:48→22:00)
[2019-08-10] MEDS: ENOXAPARIN SODIUM 100 MG/ML PF SYRINGE SQ SCH ×2 (09:48→22:00)
[2019-08-10 10:19] LABS: FERRITIN 3759 ng/mL (26-388)
[2019-08-10 12:06] LABS: GLUCOSE,POINT OF CARE 221 MG/DL (70-110)
[2019-08-10 12:30] LABS: APPEARANCE,URINE CLEAR (CLEAR); GLUCOSE, URINE (UA) NEGATIVE (NEGATIVE); KETONES,URINE NEGATIVE (NEGATIVE); LEUKOCYTE ESTERASE ,URINE NEGATIVE (NEGATIVE); NITRATE,URINE NEGATIVE (NEGATIVE); OCCULT BLOOD,URINE NEGATIVE (NEGATIVE); PROTEIN,URINE TRACE (NEGATIVE)
[2019-08-10 12:38] LABS: BILIRUBIN,URINE PRELIM. POSITIVE (NEGATIVE)
[2019-08-10 12:41] LABS: BACTERIA,URINE None Seen /HPF (None Seen); RBC,URINE 0-2 /HPF (0-2); WBC,URINE 0-2 /HPF (0-5)
[2019-08-10] MEDS ORDERED: LORazepam 2 MG/ML VIAL ONE (14:42)
[2019-08-10] MEDS ORDERED: LORazepam 2 MG/ML VIAL IVP ONE (15:00)
[2019-08-10] MEDS: MIDAZOLAM HCL 100 MG in DEXTROSE 5%-WATER 180 ML IV PRN (15:22)
[2019-08-10 16:20] LABS: ABG A-A DIFF O2 240.9 mmHg (10-20.0); ABG BASE EXCESS 4.6 mmol/L (-2.0-3.0); ABG CARBOXYHEMOGLOBIN 1.3 % (0.0-1.5); ABG HCO3 28.2 mmol/L (22.0-26.0); ABG METHEMOGLOBIN 0.3 % (0.0-1.5); ABG OXYGEN CONTENT 17.2 mL/dL (15.0-23.0); ABG OXYGEN SATURATION 93.9 % (95.0-98.0); ABG OXYHEMOGLOBIN 92.4 % (94.0-100.0); ABG PCO2 42 mmHg (35-45); ABG PH 7.455 (7.35-7.450); ABG TOTAL HEMOGLOBIN 13.2 G/dL (12.0-18.0); PO2, ARTERIAL BG 68.9 mmHg (84.0-92.0); SITE, BLOOD GAS ARTERIAL LINE; SOURCE, BLOOD GAS ARTERIAL; TEMPERATURE, FAHRENHEIT, BG 98.6 FAHREN (96.0-98.6)
[2019-08-10 16:21] LABS: O2 DEVICE,BLOOD GAS VENTILATOR (ROOM AIR); PEEP,BG 8 cm H2O; VT, ABG 450 ml
[2019-08-10 17:31] LABS: GLUCOSE,POINT OF CARE 233 MG/DL (70-110)
[2019-08-10] MEDS: CefTRIAXone 1 GM/DEXTROSE 50 ML IV SCH (18:45)
[2019-08-10 21:39] LABS: GLUCOSE,POINT OF CARE 218 MG/DL (70-110)
[2019-08-10] MEDS: INSULIN LISPRO 100 UNITS/ML SQ PRN (22:07)
[2019-08-10 23:10] LABS: ABG BASE EXCESS 0.8 mmol/L (-2.0-3.0); ABG CARBOXYHEMOGLOBIN 0.9 % (0.0-1.5); ABG HCO3 24.7 mmol/L (22.0-26.0); ABG METHEMOGLOBIN 0.3 % (0.0-1.5); ABG OXYGEN CONTENT 16.1 mL/dL (15.0-23.0); ABG OXYGEN SATURATION 87.8 % (95.0-98.0); ABG OXYHEMOGLOBIN 86.7 % (94.0-100.0); ABG PCO2 44 mmHg (35-45); ABG PH 7.389 (7.35-7.450); ABG TOTAL HEMOGLOBIN 13.2 G/dL (12.0-18.0); PO2, ARTERIAL BG 55.8 mmHg (84.0-92.0); SOURCE, BLOOD GAS ARTERIAL; TEMPERATURE, FAHRENHEIT, BG 98.6 FAHREN (96.0-98.6)
[2019-08-10 23:12] LABS: SITE, BLOOD GAS ARTERIAL LINE
[2019-08-10 23:13] LABS: O2 DEVICE,BLOOD GAS VENTILATOR (ROOM AIR); PEEP,BG 6 cm H2O; SPONTANEOUS VT, BG 414 ml; VT, ABG 450 ml
[2019-08-10] MEDS: ACETAMINOPHEN 325 MG TABLET PO PRN (23:41)
[2019-08-11] VITALS (16 sets, daily range): BP systolic 109–186; BP diastolic 49–93
[2019-08-11 01:03] LABS: GLUCOSE,POINT OF CARE 294 MG/DL (70-110)
[2019-08-11] MEDS: FentaNYL CITRATE PF 500 MCG in DEXTROSE 5%-WATER 90 ML IV PRN ×6 (01:30→19:01)
[2019-08-11] MEDS: PROPOFOL 1000 MG/ISO-OSM 100 ML IV PRN ×2 (02:19→06:06)
[2019-08-11] MEDS: ACETAMINOPHEN 325 MG TABLET PO PRN (07:46)
[2019-08-11 08:41] LABS: GLUCOSE,POINT OF CARE 225 MG/DL (70-110)
[2019-08-11] MEDS: DOCUSATE SODIUM 100 MG CAPSULE PO SCH ×2 (09:00→20:18)
[2019-08-11] MEDS: INSULIN GLARGINE,HUM.REC.ANLOG 100 UNITS/ML SQ SCH ×2 (09:15→20:54)
[2019-08-11] MEDS: ENOXAPARIN SODIUM 100 MG/ML PF SYRINGE SQ SCH ×2 (09:16→20:14)
[2019-08-11] MEDS: PANTOPRAZOLE SODIUM 40 MG/VIAL IVP SCH ×2 (09:16→20:14)
[2019-08-11] MEDS ORDERED: HEPARIN SODIUM 1000 UNITS/NS 500 ML ONE (10:05)
[2019-08-11 10:06] LABS: BASOPHILS % (AUTO) 0.6 % (0.0-2.0); EOSINOPHILS % (AUTO) 1.4 % (1.0-6.0); HEMATOCRIT 33.9 % (41-53); HEMOGLOBIN 11.4 g/dL (13.5-17.5); LYMPHOCYTES # (AUTO) 0.8 K/uL (1.0-4.8); LYMPHOCYTES % (AUTO) 7.3 % (22.0-44.0); MEAN CORPUSCULAR HEMOGLOBIN 30.5 pg (26.0-34.0); MEAN CORPUSCULAR HGB CONC 33.7 G/dL (31.0-37.0); MEAN CORPUSCULAR VOLUME 91 fL (80-100); MONOCYTES # (AUTO) 1.4 K/uL (0.1-1.0); MONOCYTES % (AUTO) 12.6 % (2.0-9.0); NEUTROPHILS # (AUTO) 8.8 K/uL (1.8-7.7); NEUTROPHILS % (AUTO) 78.1 % (40.0-70.0); PLATELET COUNT (AUTO) 272 K/uL (150-450); RED BLOOD CELL COUNT(AUTO) 3.75 MIL/uL (4.50-5.90); RED CELL DISTRIBUTION WIDTH 13.1 % (11.5-14.5)
[2019-08-11 10:55] LABS: INR 1.1 (0.9-1.1); PROTHROMBIN TIME 11.4 SEC (9.4-11.6)
[2019-08-11 11:01] LABS: ALANINE AMINOTRANSFERASE 80 U/L (12-78); ALBUMIN 1.2 g/dL (3.4-5.0); ALKALINE PHOSPHATASE 94 U/L (46-116); ANION GAP 5 mmol/L (8-16); ASPARTATE AMINOTRANSFERASE 58 U/L (15-37); BILIRUBIN,TOTAL 2.3 mg/dL (0.1-1.0); CALCIUM, TOTAL 7.8 mg/dL (8.8-10.5); CARBON DIOXIDE 30 mmol/L (22-29); CHLORIDE 95 mmol/L (98-107); CREATINE KINASE, TOTAL ONLY 110 U/L (39-308); CREATININE 0.77 mg/dL (0.60-1.30); FERRITIN 4182 ng/mL (26-388); GLOMERULAR FILTR. RATE CALC > 60 mL/min (>60); GLUCOSE,RANDOM 243 mg/dL (70-110); POTASSIUM 3.7 mmol/L (3.5-5.1); SODIUM SERUM 130 mmol/L (136-145); TOTAL PROTEIN, SERUM 6.5 g/dL (6.4-8.2); UREA NITROGEN, BLOOD 10 mg/dL (7-18)
[2019-08-11 11:12] LABS: C-REACTIVE PROTEIN QUANT 25.47 mg/dL (0.00-0.30)
[2019-08-11 11:44] LABS: ABG A-A DIFF O2 422.6 mmHg (10-20.0); ABG BASE EXCESS 5.8 mmol/L (-2.0-3.0); ABG CARBOXYHEMOGLOBIN 0.8 % (0.0-1.5); ABG METHEMOGLOBIN 0.3 % (0.0-1.5); ABG OXYGEN CONTENT 16.6 mL/dL (15.0-23.0); ABG OXYHEMOGLOBIN 95.9 % (94.0-100.0); ABG PCO2 48 mmHg (35-45); ABG PH 7.417 (7.35-7.450); ABG TOTAL HEMOGLOBIN 12.2 G/dL (12.0-18.0); PO2, ARTERIAL BG 95.6 mmHg (84.0-92.0); SOURCE, BLOOD GAS ARTERIAL; TEMPERATURE, FAHRENHEIT, BG 99.8 FAHREN (96.0-98.6)
[2019-08-11] MEDS: INSULIN LISPRO 100 UNITS/ML SQ PRN ×3 (11:45→20:55)
[2019-08-11 11:46] LABS: O2 DEVICE,BLOOD GAS VENTILATOR (ROOM AIR); PEEP,BG 10 cm H2O; SITE, BLOOD GAS ARTERIAL LINE; VT, ABG 450 ml
[2019-08-11 11:58] LABS: GLUCOSE,POINT OF CARE 215 MG/DL (70-110)
[2019-08-11] MEDS ORDERED: VANCOMYCIN HCL 1.5 GM in DEXTROSE 5%-WATER 250 ML IV ONE ×2 (14:00→23:00)
[2019-08-11] MEDS: CISATRACURIUM BESYLATE 50 MG in DEXTROSE 5%-WATER 245 ML IV PRN (15:46)
[2019-08-11] MEDS: HydrALAZINE HCL 20 MG/ML VIAL IVP PRN (16:26)
[2019-08-11] MEDS: MIDAZOLAM HCL 100 MG in DEXTROSE 5%-WATER 180 ML IV PRN (17:32)
[2019-08-11] MEDS: CloNIDine HCL 0.1 MG TABLET PO PRN (18:07)
[2019-08-11] MEDS: CefTRIAXone 1 GM/DEXTROSE 50 ML IV SCH (20:14)
[2019-08-11 20:46] LABS: GLUCOSE,POINT OF CARE 307 MG/DL (70-110)
[2019-08-12] VITALS (19 sets, daily range): BP systolic 109–174; BP diastolic 49–63
[2019-08-12 06:10] LABS: HEMATOCRIT 33.1 % (41-53); HEMOGLOBIN 11.3 g/dL (13.5-17.5); MEAN CORPUSCULAR HEMOGLOBIN 31.2 pg (26.0-34.0); MEAN CORPUSCULAR VOLUME 92 fL (80-100); PLATELET COUNT (AUTO) 240 K/uL (150-450); RED CELL DISTRIBUTION WIDTH 13.4 % (11.5-14.5)
[2019-08-12 06:36] LABS: GLUCOSE,POINT OF CARE 310 MG/DL (70-110)
[2019-08-12 07:04] LABS: ALANINE AMINOTRANSFERASE 65 U/L (12-78); ALBUMIN 1.1 g/dL (3.4-5.0); ALKALINE PHOSPHATASE 91 U/L (46-116); ANION GAP 4 mmol/L (8-16); ASPARTATE AMINOTRANSFERASE 31 U/L (15-37); BILIRUBIN,TOTAL 2.3 mg/dL (0.1-1.0); CALCIUM, TOTAL 7.6 mg/dL (8.8-10.5); CARBON DIOXIDE 29 mmol/L (22-29); CHLORIDE 88 mmol/L (98-107); CREATININE 0.89 mg/dL (0.60-1.30); FERRITIN 3926 ng/mL (26-388); GLOMERULAR FILTR. RATE CALC > 60 mL/min (>60); GLUCOSE,RANDOM 319 mg/dL (70-110); LACTATE DEHYDROGENASE 279 U/L (85-227); POTASSIUM 3.9 mmol/L (3.5-5.1); TOTAL PROTEIN, SERUM 6.4 g/dL (6.4-8.2); UREA NITROGEN, BLOOD 12 mg/dL (7-18)
[2019-08-12 07:13] LABS: C-REACTIVE PROTEIN QUANT 30.77 mg/dL (0.00-0.30)
[2019-08-12 07:22] LABS: SODIUM SERUM 121 mmol/L (136-145)
[2019-08-12] MEDS: FentaNYL CITRATE PF 500 MCG in DEXTROSE 5%-WATER 90 ML IV PRN (07:24)
[2019-08-12] MEDS: PROPOFOL 1000 MG/ISO-OSM 100 ML IV PRN ×5 (07:24→22:00)
[2019-08-12 07:38] LABS: BAND NEUTROPHILS % (MANUAL) 6 % (0-5); BASOPHILS % (MANUAL) 1 % (0-2); LYMPHOCYTES % (MANUAL) 15 % (22-44); MONOCYTES % (MANUAL) 5 % (2-9); SEGMENTED NEUTROPHILS % 73 % (40-70)
[2019-08-12] MEDS ORDERED: VANCOMYCIN HCL 1.25 GM in DEXTROSE 5%-WATER 250 ML IV SCH (08:00)
[2019-08-12] MEDS: DOCUSATE SODIUM 100 MG CAPSULE PO SCH ×2 (08:27→21:00)
[2019-08-12] MEDS: PANTOPRAZOLE SODIUM 40 MG/VIAL IVP SCH ×2 (09:37→21:11)
[2019-08-12] MEDS: ENOXAPARIN SODIUM 100 MG/ML PF SYRINGE SQ SCH ×2 (09:38→21:11)
[2019-08-12] MEDS: INSULIN GLARGINE,HUM.REC.ANLOG 100 UNITS/ML SQ SCH ×2 (09:38→21:17)
[2019-08-12 11:47] LABS: ANION GAP 3 mmol/L (8-16); CALCIUM, TOTAL 7.5 mg/dL (8.8-10.5); CARBON DIOXIDE 29 mmol/L (22-29); CHLORIDE 87 mmol/L (98-107); CREATININE 0.96 mg/dL (0.60-1.30); GLOMERULAR FILTR. RATE CALC > 60 mL/min (>60); GLUCOSE,RANDOM 329 mg/dL (70-110); POTASSIUM 4.3 mmol/L (3.5-5.1); UREA NITROGEN, BLOOD 11 mg/dL (7-18)
[2019-08-12 11:49] LABS: SODIUM SERUM 119 mmol/L (136-145)
[2019-08-12] MEDS ORDERED: TOLVAPTAN 15 MG TABLET PO ONE (12:15)
[2019-08-12 12:22] LABS: GLUCOSE,POINT OF CARE 296 MG/DL (70-110)
[2019-08-12] MEDS: CISATRACURIUM BESYLATE 50 MG in SODIUM CHLORIDE 0.9% 245 ML IV PRN ×2 (13:11→18:01)
[2019-08-12] MEDS: HydrALAZINE HCL 20 MG/ML VIAL IVP PRN (14:36)
[2019-08-12] MEDS: FentaNYL CITRATE PF 500 MCG in SODIUM CHLORIDE 0.9% 90 ML IV PRN ×2 (15:31→18:01)
[2019-08-12] MEDS: VANCOMYCIN HCL 1.25 GM in SODIUM CHLORIDE 0.9% 250 ML IV SCH (16:34)
[2019-08-12] MEDS: MIDAZOLAM HCL 100 MG in SODIUM CHLORIDE 0.9% 180 ML IV PRN (17:03)
[2019-08-12] MEDS ORDERED: SODIUM CHLORIDE 0.9% IV SCH (18:00)
[2019-08-12] MEDS ORDERED: CEFTRIAXONE SODIUM IV SCH (18:00)
[2019-08-12] MEDS: INSULIN LISPRO 100 UNITS/ML SQ PRN ×2 (18:58→22:19)
[2019-08-12 19:08] LABS: GLUCOSE,POINT OF CARE 285 MG/DL (70-110)
[2019-08-12] MEDS ORDERED: TOLVAPTAN 15 MG TABLET NG ONE (20:15)
[2019-08-12 20:58] LABS: CALCIUM, TOTAL 7.5 mg/dL (8.8-10.5); CREATININE 1.36 mg/dL (0.60-1.30); POTASSIUM 4.9 mmol/L (3.5-5.1)
[2019-08-12 21:26] LABS: ABG A-A DIFF O2 238.2 mmHg (10-20.0); ABG BASE EXCESS -1.1 mmol/L (-2.0-3.0); ABG CARBOXYHEMOGLOBIN 0.9 % (0.0-1.5); ABG METHEMOGLOBIN 0.3 % (0.0-1.5); ABG OXYGEN CONTENT 14.6 mL/dL (15.0-23.0); ABG OXYGEN SATURATION 96.8 % (95.0-98.0); ABG OXYHEMOGLOBIN 95.6 % (94.0-100.0); ABG PCO2 57 mmHg (35-45); ABG PH 7.273 (7.35-7.450); ABG TOTAL HEMOGLOBIN 10.8 G/dL (12.0-18.0); SOURCE, BLOOD GAS ARTERIAL; TEMPERATURE, FAHRENHEIT, BG 98.1 FAHREN (96.0-98.6)
[2019-08-12 21:27] LABS: O2 DEVICE,BLOOD GAS VENTILATOR (ROOM AIR); PEEP,BG 10 cm H2O; SITE, BLOOD GAS ARTERIAL LINE; VT, ABG 4850 ml
[2019-08-12 21:43] LABS: GLUCOSE,POINT OF CARE 303 MG/DL (70-110)
[2019-08-13] VITALS (25 sets, daily range): BP systolic 110–177; BP diastolic 42–68
[2019-08-13] MEDS: VANCOMYCIN HCL 1.25 GM in SODIUM CHLORIDE 0.9% 250 ML IV SCH ×2 (01:04→08:20)
[2019-08-13] MEDS: PROPOFOL 1000 MG/ISO-OSM 100 ML IV PRN ×4 (02:00→21:29)
[2019-08-13 06:23] LABS: HEMATOCRIT 30.6 % (41-53); HEMOGLOBIN 10.3 g/dL (13.5-17.5); MEAN CORPUSCULAR HEMOGLOBIN 30.3 pg (26.0-34.0); MEAN CORPUSCULAR HGB CONC 33.5 G/dL (31.0-37.0); MEAN CORPUSCULAR VOLUME 91 fL (80-100); PLATELET COUNT (AUTO) 264 K/uL (150-450); RED BLOOD CELL COUNT(AUTO) 3.38 MIL/uL (4.50-5.90); RED CELL DISTRIBUTION WIDTH 13.1 % (11.5-14.5)
[2019-08-13] MEDS: MIDAZOLAM HCL 100 MG in SODIUM CHLORIDE 0.9% 180 ML IV PRN ×2 (06:28→20:00)
[2019-08-13] MEDS: INSULIN LISPRO 100 UNITS/ML SQ PRN ×2 (06:52→18:18)
[2019-08-13 06:59] LABS: GLUCOSE,POINT OF CARE 233 MG/DL (70-110)
[2019-08-13 07:25] LABS: ALBUMIN 1.1 g/dL (3.4-5.0); BILIRUBIN,TOTAL 2.1 mg/dL (0.1-1.0); C-REACTIVE PROTEIN QUANT 24.91 mg/dL (0.00-0.30); CALCIUM, TOTAL 7.5 mg/dL (8.8-10.5); CREATININE 1.7 mg/dL (0.60-1.30); POTASSIUM 4.3 mmol/L (3.5-5.1); TOTAL PROTEIN, SERUM 6.3 g/dL (6.4-8.2); VANCOMYCIN,RANDOM 46.4 mcg/mL (25.0-50.0)
[2019-08-13] MEDS: INSULIN GLARGINE,HUM.REC.ANLOG 100 UNITS/ML SQ SCH ×2 (08:11→21:30)
[2019-08-13] MEDS: ENOXAPARIN SODIUM 100 MG/ML PF SYRINGE SQ SCH ×2 (08:20→21:30)
[2019-08-13] MEDS: HydrALAZINE HCL 20 MG/ML VIAL IVP PRN (08:21)
[2019-08-13] MEDS: PANTOPRAZOLE SODIUM 40 MG/VIAL IVP SCH ×2 (08:21→21:30)
[2019-08-13] MEDS: DOCUSATE SODIUM 100 MG CAPSULE PO SCH (08:21)
[2019-08-13 08:25] LABS: BAND NEUTROPHILS % (MANUAL) 6 % (0-5); LYMPHOCYTES % (MANUAL) 9 % (22-44); METAMYELOCYTES % 3 % (0-0); MONOCYTES % (MANUAL) 6 % (2-9); SEGMENTED NEUTROPHILS % 76 % (40-70)
[2019-08-13] MEDS ORDERED: BUMETANIDE 0.25 MG/ML 4 ML VIAL IVP ONE (08:30)
[2019-08-13 11:52] LABS: GLUCOSE,POINT OF CARE 259 MG/DL (70-110)
[2019-08-13 16:09] LABS: SODIUM,URINE RANDOM 12 mmol/l (20-110)
[2019-08-13 16:34] LABS: OSMOLALITY,URINE 178 mOS/kg (50-1200)
[2019-08-13] MEDS: CISATRACURIUM BESYLATE 50 MG in SODIUM CHLORIDE 0.9% 245 ML IV PRN (18:09)
[2019-08-13 19:50] LABS: PROTHROMBIN TIME 10.5 SEC (9.4-11.6)
[2019-08-13 19:53] LABS: ALBUMIN 1.2 g/dL (3.4-5.0); BILIRUBIN,TOTAL 1.9 mg/dL (0.1-1.0); CALCIUM, TOTAL 8.3 mg/dL (8.8-10.5); CREATININE 1.89 mg/dL (0.60-1.30); POTASSIUM 4.6 mmol/L (3.5-5.1); TOTAL PROTEIN, SERUM 7.5 g/dL (6.4-8.2)
[2019-08-13] MEDS: FentaNYL CITRATE PF 500 MCG in SODIUM CHLORIDE 0.9% 90 ML IV PRN (20:23)
[2019-08-13 20:56] LABS: GLUCOSE,POINT OF CARE 318 MG/DL (70-110)
[2019-08-13 21:03] LABS: GLUCOSE,POINT OF CARE 336 MG/DL (70-110)
[2019-08-13] MEDS: DOCUSATE SODIUM 100 MG/10 ML LIQUID UDCUP GT SCH (21:30)
[2019-08-13 23:50] LABS: GLUCOSE,POINT OF CARE 347 MG/DL (70-110)
[2019-08-14] VITALS (23 sets, daily range): BP systolic 100–158; BP diastolic 44–63
[2019-08-14] MEDS: CISATRACURIUM BESYLATE 50 MG in SODIUM CHLORIDE 0.9% 245 ML IV PRN ×2 (00:07→06:13)
[2019-08-14] MEDS: PROPOFOL 1000 MG/ISO-OSM 100 ML IV PRN ×3 (01:13→19:56)
[2019-08-14 02:21] LABS: ABG BASE EXCESS -4.1 mmol/L (-2.0-3.0); ABG CARBOXYHEMOGLOBIN 0.6 % (0.0-1.5); ABG HCO3 20.6 mmol/L (22.0-26.0); ABG METHEMOGLOBIN 0.3 % (0.0-1.5); ABG OXYGEN SATURATION 98.2 % (95.0-98.0); ABG OXYHEMOGLOBIN 97.3 % (94.0-100.0); ABG PCO2 59 mmHg (35-45); ABG PH 7.217 (7.35-7.450); ABG TOTAL HEMOGLOBIN 10.8 G/dL (12.0-18.0); PO2, ARTERIAL BG 114.2 mmHg (84.0-92.0); SOURCE, BLOOD GAS ARTERIAL; TEMPERATURE, FAHRENHEIT, BG 97.3 FAHREN (96.0-98.6)
[2019-08-14 02:23] LABS: O2 DEVICE,BLOOD GAS VENTILATOR (ROOM AIR); PEEP,BG 10 cm H2O; SITE, BLOOD GAS ARTERIAL LINE; VT, ABG 450 ml
[2019-08-14 06:47] LABS: GLUCOSE,POINT OF CARE 292 MG/DL (70-110)
[2019-08-14 06:56] LABS: HEMATOCRIT 30.7 % (41-53); HEMOGLOBIN 10.9 g/dL (13.5-17.5); MEAN CORPUSCULAR HEMOGLOBIN 32.4 pg (26.0-34.0); MEAN CORPUSCULAR HGB CONC 35.5 G/dL (31.0-37.0); MEAN CORPUSCULAR VOLUME 91 fL (80-100); PLATELET COUNT (AUTO) 349 K/uL (150-450); RED BLOOD CELL COUNT(AUTO) 3.35 MIL/uL (4.50-5.90); RED CELL DISTRIBUTION WIDTH 13.3 % (11.5-14.5)
[2019-08-14] MEDS: MIDAZOLAM HCL 100 MG in SODIUM CHLORIDE 0.9% 180 ML IV PRN ×2 (07:28→19:56)
[2019-08-14 07:31] LABS: BAND NEUTROPHILS % (MANUAL) 5 % (0-5); LYMPHOCYTES % (MANUAL) 4 % (22-44); METAMYELOCYTES % 2 % (0-0); MONOCYTES % (MANUAL) 8 % (2-9); SEGMENTED NEUTROPHILS % 81 % (40-70)
[2019-08-14 07:44] LABS: ALBUMIN 1.2 g/dL (3.4-5.0); BILIRUBIN,TOTAL 1.2 mg/dL (0.1-1.0); C-REACTIVE PROTEIN QUANT 24.87 mg/dL (0.00-0.30); CALCIUM, TOTAL 7.7 mg/dL (8.8-10.5); CREATININE 2.86 mg/dL (0.60-1.30); POTASSIUM 5.6 mmol/L (3.5-5.1); TOTAL PROTEIN, SERUM 6.9 g/dL (6.4-8.2)
[2019-08-14] MEDS: DOCUSATE SODIUM 100 MG/10 ML LIQUID UDCUP GT SCH ×2 (09:12→21:49)
[2019-08-14] MEDS: PANTOPRAZOLE SODIUM 40 MG/VIAL IVP SCH ×2 (09:12→21:50)
[2019-08-14] MEDS: ENOXAPARIN SODIUM 100 MG/ML PF SYRINGE SQ SCH ×2 (09:12→21:48)
[2019-08-14 09:13] LABS: GLUCOSE,POINT OF CARE 299 MG/DL (70-110)
[2019-08-14] MEDS: INSULIN LISPRO 100 UNITS/ML SQ PRN ×4 (09:13→22:15)
[2019-08-14] MEDS: INSULIN GLARGINE,HUM.REC.ANLOG 100 UNITS/ML SQ SCH ×2 (09:14→22:06)
[2019-08-14 10:48] LABS: ABG A-A DIFF O2 232.5 mmHg (10-20.0); ABG CARBOXYHEMOGLOBIN 0.4 % (0.0-1.5); ABG HCO3 20.9 mmol/L (22.0-26.0); ABG METHEMOGLOBIN 0.3 % (0.0-1.5); ABG OXYGEN CONTENT 14.8 mL/dL (15.0-23.0); ABG OXYGEN SATURATION 97.4 % (95.0-98.0); ABG OXYHEMOGLOBIN 96.7 % (94.0-100.0); ABG PCO2 54 mmHg (35-45); ABG TOTAL HEMOGLOBIN 10.8 G/dL (12.0-18.0); PO2, ARTERIAL BG 99.2 mmHg (84.0-92.0); SOURCE, BLOOD GAS ARTERIAL; TEMPERATURE, FAHRENHEIT, BG 98.6 FAHREN (96.0-98.6)
[2019-08-14 10:49] LABS: O2 DEVICE,BLOOD GAS VENTILATOR (ROOM AIR); PEEP,BG 10 cm H2O; SITE, BLOOD GAS ARTERIAL LINE; SPONTANEOUS VT, BG 438 ml; VT, ABG 450 ml
[2019-08-14 10:56] LABS: GLUCOSE,POINT OF CARE 270 MG/DL (70-110)
[2019-08-14 11:19] LABS: APPEARANCE,URINE TURBID (CLEAR); BILIRUBIN,URINE NEGATIVE (NEGATIVE); GLUCOSE, URINE (UA) 100 mg/dL (NEGATIVE); KETONES,URINE NEGATIVE (NEGATIVE); LEUKOCYTE ESTERASE ,URINE NEGATIVE (NEGATIVE); NITRATE,URINE NEGATIVE (NEGATIVE); OCCULT BLOOD,URINE LARGE (NEGATIVE); PROTEIN,URINE POS 1+ (NEGATIVE)
[2019-08-14] MEDS: BUMETANIDE 0.25 MG/ML 4 ML VIAL IVP SCH (12:03)
[2019-08-14 12:56] LABS: BACTERIA,URINE Moderate /HPF (None Seen); WBC,URINE 0-2 /HPF (0-5)
[2019-08-14] MEDS: FentaNYL CITRATE PF 500 MCG in SODIUM CHLORIDE 0.9% 90 ML IV PRN ×2 (13:27→23:33)
[2019-08-14 14:05] LABS: GLUCOSE,POINT OF CARE 249 MG/DL (70-110)
[2019-08-14] MEDS: SODIUM CHLORIDE 1 GM TABLET NG SCH ×2 (16:16→21:49)
[2019-08-14 18:01] LABS: GLUCOSE,POINT OF CARE 178 MG/DL (70-110)
[2019-08-14 19:59] LABS: BILIRUBIN,TOTAL 1.2 mg/dL (0.1-1.0); CALCIUM, TOTAL 7.7 mg/dL (8.8-10.5); CREATININE 3.65 mg/dL (0.60-1.30); POTASSIUM 4.3 mmol/L (3.5-5.1); TOTAL PROTEIN, SERUM 6.4 g/dL (6.4-8.2)
[2019-08-14 21:49] LABS: GLUCOSE,POINT OF CARE 146 MG/DL (70-110)
[2019-08-15] VITALS (35 sets, daily range): BP systolic 93–174; BP diastolic 37–79
[2019-08-15] MEDS: PROPOFOL 1000 MG/ISO-OSM 100 ML IV PRN ×6 (00:31→20:33)
[2019-08-15] MEDS: MIDAZOLAM HCL 100 MG in SODIUM CHLORIDE 0.9% 180 ML IV PRN ×2 (06:14→17:55)
[2019-08-15 06:27] LABS: HEMATOCRIT 28.7 % (41-53); HEMOGLOBIN 9.6 g/dL (13.5-17.5); MEAN CORPUSCULAR HEMOGLOBIN 30.7 pg (26.0-34.0); MEAN CORPUSCULAR HGB CONC 33.6 G/dL (31.0-37.0); MEAN CORPUSCULAR VOLUME 91 fL (80-100); PLATELET COUNT (AUTO) 351 K/uL (150-450); RED BLOOD CELL COUNT(AUTO) 3.14 MIL/uL (4.50-5.90); RED CELL DISTRIBUTION WIDTH 13.5 % (11.5-14.5)
[2019-08-15 06:34] LABS: GLUCOSE,POINT OF CARE 150 MG/DL (70-110)
[2019-08-15 07:35] LABS: ALBUMIN 1.1 g/dL (3.4-5.0); BILIRUBIN,TOTAL 1.1 mg/dL (0.1-1.0); C-REACTIVE PROTEIN QUANT 17.94 mg/dL (0.00-0.30); CALCIUM, TOTAL 7.2 mg/dL (8.8-10.5); CREATININE 3.95 mg/dL (0.60-1.30); POTASSIUM 4.6 mmol/L (3.5-5.1); TOTAL PROTEIN, SERUM 6.3 g/dL (6.4-8.2)
[2019-08-15 08:05] LABS: BAND NEUTROPHILS % (MANUAL) 5 % (0-5); LYMPHOCYTES % (MANUAL) 13 % (22-44); METAMYELOCYTES % 1 % (0-0); MONOCYTES % (MANUAL) 4 % (2-9); SEGMENTED NEUTROPHILS % 77 % (40-70)
[2019-08-15] MEDS: FentaNYL CITRATE PF 500 MCG in SODIUM CHLORIDE 0.9% 90 ML IV PRN ×4 (08:13→22:07)
[2019-08-15] MEDS: PANTOPRAZOLE SODIUM 40 MG/VIAL IVP SCH ×2 (09:11→20:01)
[2019-08-15] MEDS: BUMETANIDE 0.25 MG/ML 4 ML VIAL IVP SCH (09:11)
[2019-08-15] MEDS: INSULIN GLARGINE,HUM.REC.ANLOG 100 UNITS/ML SQ SCH ×2 (09:14→20:12)
[2019-08-15] MEDS: INSULIN LISPRO 100 UNITS/ML SQ PRN ×2 (09:15→17:45)
[2019-08-15 10:18] LABS: ABG A-A DIFF O2 198.5 mmHg (10-20.0); ABG CARBOXYHEMOGLOBIN 0.5 % (0.0-1.5); ABG METHEMOGLOBIN 0.1 % (0.0-1.5); ABG OXYGEN CONTENT 14.6 mL/dL (15.0-23.0); ABG OXYGEN SATURATION 97.9 % (95.0-98.0); ABG OXYHEMOGLOBIN 97.3 % (94.0-100.0); ABG PCO2 62 mmHg (35-45); ABG TOTAL HEMOGLOBIN 10.5 G/dL (12.0-18.0); PO2, ARTERIAL BG 124.8 mmHg (84.0-92.0); SOURCE, BLOOD GAS ARTERIAL; TEMPERATURE, FAHRENHEIT, BG 98.6 FAHREN (96.0-98.6)
[2019-08-15 10:20] LABS: O2 DEVICE,BLOOD GAS VENTILATOR (ROOM AIR); PEEP,BG 10 cm H2O; SITE, BLOOD GAS ARTERIAL LINE; VT, ABG 450 ml
[2019-08-15 10:27] LABS: VANCOMYCIN,RANDOM 36.4 mcg/mL (25.0-50.0)
[2019-08-15] MEDS: CISATRACURIUM BESYLATE 50 MG in SODIUM CHLORIDE 0.9% 245 ML IV PRN ×3 (10:30→20:06)
[2019-08-15] MEDS: ENOXAPARIN SODIUM 100 MG/ML PF SYRINGE SQ SCH (10:35)
[2019-08-15] MEDS: DOCUSATE SODIUM 100 MG/10 ML LIQUID UDCUP GT SCH ×2 (10:35→20:09)
[2019-08-15] MEDS: SODIUM CHLORIDE 1 GM TABLET NG SCH ×3 (10:35→23:22)
[2019-08-15] MEDS ORDERED: SODIUM BICARBONATE [ADULT] 8.4% 50 MEQ/50 ML SYRINGE IVP ONE (10:45)
[2019-08-15 10:46] LABS: GLUCOSE,POINT OF CARE 171 MG/DL (70-110)
[2019-08-15 10:46] LABS: GLUCOSE,POINT OF CARE 175 MG/DL (70-110)
[2019-08-15 10:56] LABS: LEGIONELLA PNEUMO AG URINE Negative (Negative); ORGANISM ID Not indicated.; S PNEUMO SOURCE Urine; STREP PNEUMONIAE AG URINE Negative (Negative); STREP.PNEUMO BODY FLUID CULT. Not indicated.
[2019-08-15 11:51] LABS: GLUCOSE,POINT OF CARE 183 MG/DL (70-110)
[2019-08-15] MEDS ORDERED: TOCILIZUMAB 700 MG in SODIUM CHLORIDE 0.9% 65 ML IV ONE (13:30)
[2019-08-15] MEDS ORDERED: SODIUM CHLORIDE 0.9% 500 ML IV ONE (15:39)
[2019-08-15] MEDS ORDERED: HEPARIN SODIUM,PORCINE 100 UNITS/ML 5 ML VIAL IVP ONE (15:39)
[2019-08-15 16:43] LABS: GLUCOSE,POINT OF CARE 148 MG/DL (70-110)
[2019-08-15 17:39] LABS: GLUCOSE,POINT OF CARE 156 MG/DL (70-110)
[2019-08-15] MEDS ORDERED: NOREPINEPHRINE 4 MG/D5%-WATER 250 ML IV PRN (18:30)
[2019-08-15] MEDS ORDERED: ALBUMIN HUMAN 25%-25GM/100ML 100 ML IV ONE (18:30)
[2019-08-15 18:38] LABS: BASOPHILS % (AUTO) 0.3 % (0.0-2.0); EOSINOPHILS % (AUTO) 0.9 % (1.0-6.0); HEMATOCRIT 26.3 % (41-53); HEMOGLOBIN 8.9 g/dL (13.5-17.5); LYMPHOCYTES # (AUTO) 0.7 K/uL (1.0-4.8); MEAN CORPUSCULAR HEMOGLOBIN 30.5 pg (26.0-34.0); MEAN CORPUSCULAR VOLUME 90 fL (80-100); MONOCYTES # (AUTO) 1.5 K/uL (0.1-1.0); MONOCYTES % (AUTO) 13.6 % (2.0-9.0); NEUTROPHILS # (AUTO) 8.4 K/uL (1.8-7.7); NEUTROPHILS % (AUTO) 78.2 % (40.0-70.0); PLATELET COUNT (AUTO) 332 K/uL (150-450); RED BLOOD CELL COUNT(AUTO) 2.93 MIL/uL (4.50-5.90); RED CELL DISTRIBUTION WIDTH 13.4 % (11.5-14.5)
[2019-08-15 18:47] LABS: CALCIUM, TOTAL 7.3 mg/dL (8.8-10.5); CREATININE 4.65 mg/dL (0.60-1.30); POTASSIUM 4.6 mmol/L (3.5-5.1)
[2019-08-15 18:52] LABS: PROTHROMBIN TIME 10.7 SEC (9.4-11.6)
[2019-08-15 18:53] LABS: BILIRUBIN,TOTAL 1.1 mg/dL (0.1-1.0); TOTAL PROTEIN, SERUM 6.1 g/dL (6.4-8.2)
[2019-08-15 19:39] LABS: GLUCOSE,POINT OF CARE 128 MG/DL (70-110)
[2019-08-15 20:29] LABS: ABG A-A DIFF O2 166.4 mmHg (10-20.0); ABG BASE EXCESS -4.6 mmol/L (-2.0-3.0); ABG CARBOXYHEMOGLOBIN 0.5 % (0.0-1.5); ABG HCO3 20.5 mmol/L (22.0-26.0); ABG METHEMOGLOBIN 0.3 % (0.0-1.5); ABG OXYHEMOGLOBIN 95.2 % (94.0-100.0); ABG PCO2 57 mmHg (35-45); ABG PH 7.226 (7.35-7.450); ABG TOTAL HEMOGLOBIN 9.6 G/dL (12.0-18.0); SITE, BLOOD GAS ARTERIAL LINE; SOURCE, BLOOD GAS ARTERIAL; TEMPERATURE, FAHRENHEIT, BG 98.6 FAHREN (96.0-98.6)
[2019-08-15 20:30] LABS: O2 DEVICE,BLOOD GAS VENTILATOR (ROOM AIR); PEEP,BG 8 cm H2O; VT, ABG 450 ml
[2019-08-15 21:46] LABS: GLUCOSE,POINT OF CARE 98 MG/DL (70-110)
[2019-08-16] VITALS (25 sets, daily range): BP systolic 98–210; BP diastolic 38–112
[2019-08-16] MEDS: FentaNYL CITRATE PF 500 MCG in SODIUM CHLORIDE 0.9% 90 ML IV PRN ×2 (05:27→18:28)
[2019-08-16 06:34] LABS: BASOPHILS % (AUTO) 0.5 % (0.0-2.0); EOSINOPHILS % (AUTO) 1.9 % (1.0-6.0); HEMATOCRIT 26.6 % (41-53); HEMOGLOBIN 9.3 g/dL (13.5-17.5); LYMPHOCYTES # (AUTO) 0.5 K/uL (1.0-4.8); LYMPHOCYTES % (AUTO) 5.9 % (22.0-44.0); MEAN CORPUSCULAR HEMOGLOBIN 31.5 pg (26.0-34.0); MEAN CORPUSCULAR HGB CONC 34.8 G/dL (31.0-37.0); MEAN CORPUSCULAR VOLUME 90 fL (80-100); MONOCYTES # (AUTO) 1.1 K/uL (0.1-1.0); MONOCYTES % (AUTO) 13.6 % (2.0-9.0); NEUTROPHILS # (AUTO) 6.5 K/uL (1.8-7.7); NEUTROPHILS % (AUTO) 78.1 % (40.0-70.0); PLATELET COUNT (AUTO) 367 K/uL (150-450); RED BLOOD CELL COUNT(AUTO) 2.94 MIL/uL (4.50-5.90); RED CELL DISTRIBUTION WIDTH 13.5 % (11.5-14.5)
[2019-08-16 06:44] LABS: GLUCOSE,POINT OF CARE 98 MG/DL (70-110)
[2019-08-16 07:52] LABS: ALBUMIN 1.5 g/dL (3.4-5.0); BILIRUBIN,TOTAL 1.1 mg/dL (0.1-1.0); C-REACTIVE PROTEIN QUANT 12.92 mg/dL (0.00-0.30); CALCIUM, TOTAL 8.3 mg/dL (8.8-10.5); CREATININE 3.35 mg/dL (0.60-1.30); POTASSIUM 4.3 mmol/L (3.5-5.1); TOTAL PROTEIN, SERUM 6.3 g/dL (6.4-8.2)
[2019-08-16 10:18] LABS: QUANTIFERON+, Nil Value 0.03 IU/mL; QUANTIFERON+,Mitogen Value 0.04 IU/mL; QUANTIFERON+,TB1 Antigen Value 0.03 IU/mL; QUANTIFERON, TB GOLD PLUS Indeterminate (Negative)
[2019-08-16 11:33] LABS: ABG A-A DIFF O2 168.5 mmHg (10-20.0); ABG BASE EXCESS -4.4 mmol/L (-2.0-3.0); ABG CARBOXYHEMOGLOBIN 1.1 % (0.0-1.5); ABG HCO3 21.1 mmol/L (22.0-26.0); ABG METHEMOGLOBIN 0.3 % (0.0-1.5); ABG OXYHEMOGLOBIN 96.6 % (94.0-100.0); ABG PCO2 38 mmHg (35-45); ABG PH 7.358 (7.35-7.450); ABG TOTAL HEMOGLOBIN 9.4 G/dL (12.0-18.0); PO2, ARTERIAL BG 108.5 mmHg (84.0-92.0); SOURCE, BLOOD GAS ARTERIAL
[2019-08-16 11:34] LABS: SITE, BLOOD GAS ARTERIAL LINE
[2019-08-16 11:35] LABS: O2 DEVICE,BLOOD GAS VENTILATOR (ROOM AIR); PEEP,BG 8 cm H2O; VT, ABG 450 ml
[2019-08-16] MEDS: DEXMEDETOMIDINE HCL 200 MCG in SODIUM CHLORIDE 0.9% 48 ML IV PRN (13:45)
[2019-08-16] MEDS: DOCUSATE SODIUM 100 MG/10 ML LIQUID UDCUP GT SCH ×2 (14:41→21:00)
[2019-08-16] MEDS: PANTOPRAZOLE SODIUM 40 MG/VIAL IVP SCH ×2 (14:41→23:19)
[2019-08-16] MEDS: ENOXAPARIN SODIUM 100 MG/ML PF SYRINGE SQ SCH (14:42)
[2019-08-16] MEDS: INSULIN GLARGINE,HUM.REC.ANLOG 100 UNITS/ML SQ SCH ×2 (14:44→21:00)
[2019-08-16 15:31] LABS: ABG A-A DIFF O2 185.2 mmHg (10-20.0); ABG BASE EXCESS -5.3 mmol/L (-2.0-3.0); ABG CARBOXYHEMOGLOBIN 0.5 % (0.0-1.5); ABG HCO3 20.4 mmol/L (22.0-26.0); ABG METHEMOGLOBIN 0.3 % (0.0-1.5); ABG OXYGEN CONTENT 13.6 mL/dL (15.0-23.0); ABG OXYGEN SATURATION 96.1 % (95.0-98.0); ABG OXYHEMOGLOBIN 95.3 % (94.0-100.0); ABG PCO2 41 mmHg (35-45); ABG PH 7.325 (7.35-7.450); ABG TOTAL HEMOGLOBIN 10.1 G/dL (12.0-18.0); PO2, ARTERIAL BG 88.8 mmHg (84.0-92.0); SOURCE, BLOOD GAS ARTERIAL; TEMPERATURE, FAHRENHEIT, BG 99.6 FAHREN (96.0-98.6)
[2019-08-16 15:32] LABS: O2 DEVICE,BLOOD GAS VENTILATOR (ROOM AIR); PEEP,BG 5 cm H2O; PRESSURE SUPPORT, BG 10 cm H2O; SITE, BLOOD GAS ARTERIAL LINE; SPONTANEOUS VT, BG 525 ml; VENT MODE, BG CPAP (ROOM AIR)
[2019-08-16] MEDS ORDERED: HEPARIN SODIUM,PORCINE 1,000 UNITS/ML VIAL IVP ONE (17:33)
[2019-08-16 17:46] LABS: GLUCOSE,POINT OF CARE 104 MG/DL (70-110)
[2019-08-16 17:46] LABS: GLUCOSE,POINT OF CARE 108 MG/DL (70-110)
[2019-08-16] MEDS: PROPOFOL 1000 MG/ISO-OSM 100 ML IV PRN ×2 (21:01→23:24)
[2019-08-16 21:33] LABS: GLUCOSE,POINT OF CARE 90 MG/DL (70-110)
[2019-08-16] MEDS: ACETAMINOPHEN 325 MG TABLET PO PRN (23:25)
[2019-08-16 23:51] LABS: GLUCOSE,POINT OF CARE 89 MG/DL (70-110)
[2019-08-17] VITALS (36 sets, daily range): BP systolic 102–188; BP diastolic 44–63
[2019-08-17] MEDS: PROPOFOL 1000 MG/ISO-OSM 100 ML IV PRN ×5 (02:05→18:45)
[2019-08-17] MEDS: DEXMEDETOMIDINE HCL 200 MCG in SODIUM CHLORIDE 0.9% 48 ML IV PRN ×2 (02:26→11:46)
[2019-08-17] MEDS: FentaNYL CITRATE PF 500 MCG in SODIUM CHLORIDE 0.9% 90 ML IV PRN ×5 (04:44→18:45)
[2019-08-17 06:02] LABS: BASOPHILS % (AUTO) 0.3 % (0.0-2.0); EOSINOPHILS % (AUTO) 2.9 % (1.0-6.0); HEMATOCRIT 27.7 % (41-53); HEMOGLOBIN 9.7 g/dL (13.5-17.5); LYMPHOCYTES # (AUTO) 0.7 K/uL (1.0-4.8); LYMPHOCYTES % (AUTO) 7.2 % (22.0-44.0); MEAN CORPUSCULAR HEMOGLOBIN 31.5 pg (26.0-34.0); MEAN CORPUSCULAR VOLUME 90 fL (80-100); MONOCYTES # (AUTO) 1.1 K/uL (0.1-1.0); MONOCYTES % (AUTO) 11.1 % (2.0-9.0); NEUTROPHILS # (AUTO) 8.1 K/uL (1.8-7.7); NEUTROPHILS % (AUTO) 78.5 % (40.0-70.0); PLATELET COUNT (AUTO) 429 K/uL (150-450); RED BLOOD CELL COUNT(AUTO) 3.08 MIL/uL (4.50-5.90); RED CELL DISTRIBUTION WIDTH 13.7 % (11.5-14.5)
[2019-08-17 06:43] LABS: GLUCOSE,POINT OF CARE 87 MG/DL (70-110)
[2019-08-17 07:03] LABS: ALBUMIN 1.3 g/dL (3.4-5.0); BILIRUBIN,TOTAL 0.9 mg/dL (0.1-1.0); C-REACTIVE PROTEIN QUANT 5.23 mg/dL (0.00-0.30); CALCIUM, TOTAL 7.6 mg/dL (8.8-10.5); CREATININE 4.87 mg/dL (0.60-1.30); POTASSIUM 4.2 mmol/L (3.5-5.1); TOTAL PROTEIN, SERUM 5.8 g/dL (6.4-8.2)
[2019-08-17] MEDS: DOCUSATE SODIUM 100 MG/10 ML LIQUID UDCUP GT SCH ×2 (08:37→21:26)
[2019-08-17] MEDS: ENOXAPARIN SODIUM 100 MG/ML PF SYRINGE SQ SCH (08:38)
[2019-08-17] MEDS: AmLODIPine BESYLATE 5 MG TABLET GT SCH (08:38)
[2019-08-17] MEDS: PANTOPRAZOLE SODIUM 40 MG/VIAL IVP SCH ×2 (08:38→21:09)
[2019-08-17] MEDS: INSULIN GLARGINE,HUM.REC.ANLOG 100 UNITS/ML SQ SCH ×2 (08:45→21:13)
[2019-08-17] MEDS ORDERED: HEPARIN SODIUM,PORCINE 1,000 UNITS/ML VIAL IVP ONE (12:00)
[2019-08-17 13:15] LABS: GLUCOSE,POINT OF CARE 103 MG/DL (70-110)
[2019-08-17] MEDS: HydrALAZINE HCL 20 MG/ML VIAL IVP PRN (15:57)
[2019-08-17] MEDS: CloNIDine HCL 0.1 MG TABLET PO PRN (16:46)
[2019-08-17] MEDS: ACETAMINOPHEN 325 MG TABLET PO PRN (16:46)
[2019-08-17 17:40] LABS: GLUCOSE,POINT OF CARE 149 MG/DL (70-110)
[2019-08-17] MEDS ORDERED: HEPARIN SODIUM,PORCINE 5,000 UNITS/ML VIAL IVP ONE (20:00)
[2019-08-17 20:35] LABS: BASOPHILS % (AUTO) 0.4 % (0.0-2.0); EOSINOPHILS % (AUTO) 3.3 % (1.0-6.0); HEMATOCRIT 29.5 % (41-53); LYMPHOCYTES # (AUTO) 0.8 K/uL (1.0-4.8); LYMPHOCYTES % (AUTO) 7.3 % (22.0-44.0); MEAN CORPUSCULAR HEMOGLOBIN 30.3 pg (26.0-34.0); MEAN CORPUSCULAR HGB CONC 34.1 G/dL (31.0-37.0); MEAN CORPUSCULAR VOLUME 89 fL (80-100); MONOCYTES # (AUTO) 0.9 K/uL (0.1-1.0); MONOCYTES % (AUTO) 8.3 % (2.0-9.0); NEUTROPHILS # (AUTO) 9.2 K/uL (1.8-7.7); NEUTROPHILS % (AUTO) 80.7 % (40.0-70.0); PLATELET COUNT (AUTO) 388 K/uL (150-450); RED BLOOD CELL COUNT(AUTO) 3.31 MIL/uL (4.50-5.90); RED CELL DISTRIBUTION WIDTH 13.6 % (11.5-14.5)
[2019-08-17 20:46] LABS: PROTHROMBIN TIME 10.6 SEC (9.4-11.6)
[2019-08-17 21:46] LABS: BAND NEUTROPHILS % (MANUAL) 10 % (0-5); EOSINOPHILS % (MANUAL) 3 % (1-6); LYMPHOCYTES % (MANUAL) 6 % (22-44); METAMYELOCYTES % 2 % (0-0); MONOCYTES % (MANUAL) 7 % (2-9); MYELOCYTES % 3 % (0-0); SEGMENTED NEUTROPHILS % 69 % (40-70)
[2019-08-18] VITALS (30 sets, daily range): BP systolic 101–171; BP diastolic 43–63
[2019-08-18] MEDS: FentaNYL CITRATE PF 500 MCG in SODIUM CHLORIDE 0.9% 90 ML IV PRN ×3 (01:07→21:00)
[2019-08-18] MEDS: HEPARIN SODIUM,PORCINE 5,000 UNITS/ML VIAL IVP PRN (05:27)
[2019-08-18 06:39] LABS: BASOPHILS % (AUTO) 0.5 % (0.0-2.0); EOSINOPHILS % (AUTO) 4.6 % (1.0-6.0); HEMATOCRIT 29.2 % (41-53); HEMOGLOBIN 9.9 g/dL (13.5-17.5); LYMPHOCYTES # (AUTO) 1.4 K/uL (1.0-4.8); LYMPHOCYTES % (AUTO) 10.7 % (22.0-44.0); MEAN CORPUSCULAR HEMOGLOBIN 30.2 pg (26.0-34.0); MEAN CORPUSCULAR HGB CONC 33.9 G/dL (31.0-37.0); MEAN CORPUSCULAR VOLUME 89 fL (80-100); MONOCYTES # (AUTO) 1.3 K/uL (0.1-1.0); MONOCYTES % (AUTO) 9.5 % (2.0-9.0); NEUTROPHILS # (AUTO) 9.9 K/uL (1.8-7.7); NEUTROPHILS % (AUTO) 74.7 % (40.0-70.0); PLATELET COUNT (AUTO) 418 K/uL (150-450); RED BLOOD CELL COUNT(AUTO) 3.28 MIL/uL (4.50-5.90); RED CELL DISTRIBUTION WIDTH 13.8 % (11.5-14.5)
[2019-08-18 07:27] LABS: D-DIMER 4.85 mg/L FEU (0.00-0.50)
[2019-08-18 07:28] LABS: GLUCOSE,POINT OF CARE 119 MG/DL (70-110)
[2019-08-18 08:00] LABS: ALBUMIN 1.4 g/dL (3.4-5.0); BILIRUBIN,TOTAL 0.7 mg/dL (0.1-1.0); C-REACTIVE PROTEIN QUANT 2.55 mg/dL (0.00-0.30); CALCIUM, TOTAL 7.7 mg/dL (8.8-10.5); CREATININE 3.86 mg/dL (0.60-1.30); POTASSIUM 3.7 mmol/L (3.5-5.1); TOTAL PROTEIN, SERUM 5.7 g/dL (6.4-8.2)
[2019-08-18] MEDS: INSULIN GLARGINE,HUM.REC.ANLOG 100 UNITS/ML SQ SCH ×2 (09:28→22:25)
[2019-08-18] MEDS: AmLODIPine BESYLATE 5 MG TABLET GT SCH (09:29)
[2019-08-18] MEDS: PANTOPRAZOLE SODIUM 40 MG/VIAL IVP SCH ×2 (09:29→22:24)
[2019-08-18] MEDS: DOCUSATE SODIUM 100 MG/10 ML LIQUID UDCUP GT SCH ×2 (09:29→21:00)
[2019-08-18] MEDS: PROPOFOL 1000 MG/ISO-OSM 100 ML IV PRN (10:00)
[2019-08-18 11:49] LABS: GLUCOSE,POINT OF CARE 148 MG/DL (70-110)
[2019-08-18] MEDS: INSULIN LISPRO 100 UNITS/ML SQ PRN ×2 (11:50→22:26)
[2019-08-18] MEDS: DEXMEDETOMIDINE HCL 200 MCG in SODIUM CHLORIDE 0.9% 48 ML IV PRN ×2 (12:05→23:45)
[2019-08-18] MEDS: HEPARIN SODIUM 25000 UNITS/D5W 250 ML IV PRN (15:20)
[2019-08-18 17:33] LABS: ABG A-A DIFF O2 179.7 mmHg (10-20.0); ABG BASE EXCESS -0.2 mmol/L (-2.0-3.0); ABG CARBOXYHEMOGLOBIN 0.4 % (0.0-1.5); ABG HCO3 24.2 mmol/L (22.0-26.0); ABG METHEMOGLOBIN 0.3 % (0.0-1.5); ABG OXYGEN CONTENT 14.4 mL/dL (15.0-23.0); ABG OXYGEN SATURATION 96.6 % (95.0-98.0); ABG OXYHEMOGLOBIN 95.9 % (94.0-100.0); ABG PCO2 43 mmHg (35-45); ABG TOTAL HEMOGLOBIN 10.6 G/dL (12.0-18.0); PO2, ARTERIAL BG 92.1 mmHg (84.0-92.0); SOURCE, BLOOD GAS ARTERIAL; TEMPERATURE, FAHRENHEIT, BG 98.6 FAHREN (96.0-98.6)
[2019-08-18 17:47] LABS: SITE, BLOOD GAS ARTERIAL LINE
[2019-08-18 17:48] LABS: O2 DEVICE,BLOOD GAS VENTILATOR (ROOM AIR); PEEP,BG 5 cm H2O; PRESSURE SUPPORT, BG 10 cm H2O; SPONTANEOUS VT, BG 525 ml; VENT MODE, BG CPAP (ROOM AIR)
[2019-08-18 17:48] LABS: GLUCOSE,POINT OF CARE 104 MG/DL (70-110)
[2019-08-18 21:15] LABS: GLUCOSE,POINT OF CARE 120 MG/DL (70-110)
[2019-08-19] VITALS (32 sets, daily range): BP systolic 114–166; BP diastolic 47–63
[2019-08-19] MEDS: PROPOFOL 1000 MG/ISO-OSM 100 ML IV PRN (01:21)
[2019-08-19 05:20] LABS: BASOPHILS % (AUTO) 0.6 % (0.0-2.0); EOSINOPHILS % (AUTO) 7.3 % (1.0-6.0); HEMATOCRIT 29.8 % (41-53); HEMOGLOBIN 10.2 g/dL (13.5-17.5); LYMPHOCYTES # (AUTO) 2.3 K/uL (1.0-4.8); MEAN CORPUSCULAR HEMOGLOBIN 30.4 pg (26.0-34.0); MEAN CORPUSCULAR HGB CONC 34.1 G/dL (31.0-37.0); MEAN CORPUSCULAR VOLUME 89 fL (80-100); MONOCYTES # (AUTO) 1.4 K/uL (0.1-1.0); MONOCYTES % (AUTO) 8.3 % (2.0-9.0); NEUTROPHILS # (AUTO) 11.5 K/uL (1.8-7.7); NEUTROPHILS % (AUTO) 69.8 % (40.0-70.0); PLATELET COUNT (AUTO) 419 K/uL (150-450); RED BLOOD CELL COUNT(AUTO) 3.35 MIL/uL (4.50-5.90); RED CELL DISTRIBUTION WIDTH 13.8 % (11.5-14.5)
[2019-08-19 05:31] LABS: D-DIMER 4.31 mg/L FEU (0.00-0.50)
[2019-08-19 06:05] LABS: ALBUMIN 1.5 g/dL (3.4-5.0); BILIRUBIN,TOTAL 0.7 mg/dL (0.1-1.0); C-REACTIVE PROTEIN QUANT 1.96 mg/dL (0.00-0.30); CALCIUM, TOTAL 7.8 mg/dL (8.8-10.5); CREATININE 4.85 mg/dL (0.60-1.30); TOTAL PROTEIN, SERUM 5.9 g/dL (6.4-8.2)
[2019-08-19] MEDS: HEPARIN SODIUM,PORCINE 5,000 UNITS/ML VIAL IVP PRN ×3 (06:37→12:35)
[2019-08-19 06:42] LABS: GLUCOSE,POINT OF CARE 132 MG/DL (70-110)
[2019-08-19] MEDS: AmLODIPine BESYLATE 5 MG TABLET GT SCH (09:00)
[2019-08-19] MEDS: PANTOPRAZOLE SODIUM 40 MG/VIAL IVP SCH ×2 (09:13→21:37)
[2019-08-19] MEDS: DOCUSATE SODIUM 100 MG/10 ML LIQUID UDCUP GT SCH ×2 (09:14→22:52)
[2019-08-19] MEDS: INSULIN GLARGINE,HUM.REC.ANLOG 100 UNITS/ML SQ SCH ×2 (09:20→21:38)
[2019-08-19 09:33] LABS: APPEARANCE,URINE TURBID (CLEAR); BILIRUBIN,URINE NEGATIVE (NEGATIVE); GLUCOSE, URINE (UA) NEGATIVE (NEGATIVE); KETONES,URINE NEGATIVE (NEGATIVE); LEUKOCYTE ESTERASE ,URINE LARGE (NEGATIVE); NITRATE,URINE NEGATIVE (NEGATIVE); OCCULT BLOOD,URINE SMALL (NEGATIVE); PROTEIN,URINE TRACE (NEGATIVE); UROBILINOGEN,URINE 0.2 mg/dL (<=1.0)
[2019-08-19 09:51] LABS: BACTERIA,URINE Few /HPF (None Seen); SQUAMOUS EPITHELIAL CELL,UR Few /LPF (None Seen); YEAST,URINE Many /HPF (None Seen)
[2019-08-19] MEDS ORDERED: *CLINICAL-CEFEPIME DOSING CLINICAL ONE (10:45)
[2019-08-19] MEDS ORDERED: CEFEPIME HCL 1 GM in DEXTROSE 5%-WATER 50 ML IV ONE (11:00)
[2019-08-19] MEDS ORDERED: SODIUM CHLORIDE 0.9% 1,000 ML ONE (11:04)
[2019-08-19 11:34] LABS: GLUCOSE,POINT OF CARE 160 MG/DL (70-110)
[2019-08-19 11:50] LABS: INR 1.1 (0.9-1.1); PROTHROMBIN TIME 10.8 SEC (9.4-11.6)
[2019-08-19] MEDS ORDERED: SODIUM CHLORIDE 0.9% 100 ML ONE (12:00)
[2019-08-19] MEDS ORDERED: FUROSEMIDE 20 MG/2 ML VIAL IVP ONE (14:00)
[2019-08-19 17:28] LABS: GLUCOSE,POINT OF CARE 139 MG/DL (70-110)
[2019-08-19 17:28] LABS: GLUCOSE,POINT OF CARE 103 MG/DL (70-110)
[2019-08-19 17:37] LABS: ABG A-A DIFF O2 159.7 mmHg (10-20.0); ABG BASE EXCESS 2.5 mmol/L (-2.0-3.0); ABG CARBOXYHEMOGLOBIN 0.2 % (0.0-1.5); ABG HCO3 26.4 mmol/L (22.0-26.0); ABG METHEMOGLOBIN 0.3 % (0.0-1.5); ABG OXYGEN CONTENT 15.1 mL/dL (15.0-23.0); ABG OXYHEMOGLOBIN 97.5 % (94.0-100.0); ABG PCO2 45 mmHg (35-45); ABG PH 7.404 (7.35-7.450); ABG TOTAL HEMOGLOBIN 10.9 G/dL (12.0-18.0); O2 DEVICE,BLOOD GAS VENTILATOR (ROOM AIR); PO2, ARTERIAL BG 110.2 mmHg (84.0-92.0); SITE, BLOOD GAS ARTERIAL LINE; SOURCE, BLOOD GAS ARTERIAL; TEMPERATURE, FAHRENHEIT, BG 98.8 FAHREN (96.0-98.6)
[2019-08-19 17:38] LABS: PEEP,BG 5 cm H2O; PRESSURE SUPPORT, BG 10 cm H2O; SPONTANEOUS VT, BG 525 ml; VENT MODE, BG CPAP (ROOM AIR)
[2019-08-19 21:02] LABS: GLUCOSE,POINT OF CARE 152 MG/DL (70-110)
[2019-08-20] VITALS (33 sets, daily range): BP systolic 112–183; BP diastolic 49–67
[2019-08-20] MEDS: HEPARIN SODIUM,PORCINE 5,000 UNITS/ML VIAL IVP PRN ×2 (05:33→08:50)
[2019-08-20 05:53] LABS: BASOPHILS % (AUTO) 0.5 % (0.0-2.0); EOSINOPHILS % (AUTO) 6.9 % (1.0-6.0); HEMATOCRIT 28.3 % (41-53); HEMOGLOBIN 9.9 g/dL (13.5-17.5); LYMPHOCYTES # (AUTO) 2.7 K/uL (1.0-4.8); LYMPHOCYTES % (AUTO) 14.4 % (22.0-44.0); MEAN CORPUSCULAR VOLUME 89 fL (80-100); MONOCYTES # (AUTO) 1.7 K/uL (0.1-1.0); MONOCYTES % (AUTO) 8.8 % (2.0-9.0); NEUTROPHILS % (AUTO) 69.4 % (40.0-70.0); PLATELET COUNT (AUTO) 373 K/uL (150-450); RED BLOOD CELL COUNT(AUTO) 3.19 MIL/uL (4.50-5.90); RED CELL DISTRIBUTION WIDTH 13.7 % (11.5-14.5)
[2019-08-20 06:26] LABS: GLUCOSE,POINT OF CARE 187 MG/DL (70-110)
[2019-08-20 06:34] LABS: D-DIMER 4.49 mg/L FEU (0.00-0.50)
[2019-08-20 07:58] LABS: ALBUMIN 1.7 g/dL (3.4-5.0); BILIRUBIN,TOTAL 0.6 mg/dL (0.1-1.0); C-REACTIVE PROTEIN QUANT 1.88 mg/dL (0.00-0.30); CALCIUM, TOTAL 8.2 mg/dL (8.8-10.5); CREATININE 4.2 mg/dL (0.60-1.30); MAGNESIUM 2.3 mg/dL (1.80-2.40); POTASSIUM 4.1 mmol/L (3.5-5.1); TOTAL PROTEIN, SERUM 6.1 g/dL (6.4-8.2)
[2019-08-20] MEDS: AmLODIPine BESYLATE 5 MG TABLET GT SCH (09:00)
[2019-08-20] MEDS: PANTOPRAZOLE SODIUM 40 MG/VIAL IVP SCH ×2 (09:00→20:27)
[2019-08-20] MEDS: DOCUSATE SODIUM 100 MG/10 ML LIQUID UDCUP GT SCH ×2 (09:00→21:00)
[2019-08-20] MEDS: INSULIN GLARGINE,HUM.REC.ANLOG 100 UNITS/ML SQ SCH ×2 (09:03→21:26)
[2019-08-20] MEDS: INSULIN LISPRO 100 UNITS/ML SQ PRN ×2 (12:07→21:26)
[2019-08-20 12:31] LABS: GLUCOSE,POINT OF CARE 195 MG/DL (70-110)
[2019-08-20] MEDS: MetroNIDAZOLE 500 MG/NACL 100 ML IV SCH ×2 (12:42→20:27)
[2019-08-20] MEDS: FUROSEMIDE 40 MG/4 ML VIAL IVP SCH ×2 (13:32→20:29)
[2019-08-20] MEDS: HEPARIN SODIUM 25000 UNITS/D5W 250 ML IV PRN (14:05)
[2019-08-20] MEDS ORDERED: SODIUM CHLORIDE 0.9% 500 ML IV ONE (16:38)
[2019-08-20] MEDS ORDERED: HEPARIN SODIUM,PORCINE 1,000 UNITS/ML VIAL IVP ONE (16:58)
[2019-08-20] MEDS ORDERED: CEFEPIME HCL 0.5 GM in DEXTROSE 5%-WATER 50 ML IV SCH (18:00)
[2019-08-20 18:39] LABS: GLUCOSE,POINT OF CARE 127 MG/DL (70-110)
[2019-08-20 21:25] LABS: GLUCOSE,POINT OF CARE 142 MG/DL (70-110)
[2019-08-21] VITALS (34 sets, daily range): BP systolic 108–183; BP diastolic 50–72
[2019-08-21] MEDS: MetroNIDAZOLE 500 MG/NACL 100 ML IV SCH ×3 (05:24→21:30)
[2019-08-21 05:51] LABS: BASOPHILS % (AUTO) 0.5 % (0.0-2.0); EOSINOPHILS % (AUTO) 8.5 % (1.0-6.0); HEMATOCRIT 26.1 % (41-53); LYMPHOCYTES # (AUTO) 2.8 K/uL (1.0-4.8); MEAN CORPUSCULAR HEMOGLOBIN 30.6 pg (26.0-34.0); MEAN CORPUSCULAR HGB CONC 34.4 G/dL (31.0-37.0); MEAN CORPUSCULAR VOLUME 89 fL (80-100); MONOCYTES # (AUTO) 1.7 K/uL (0.1-1.0); MONOCYTES % (AUTO) 7.8 % (2.0-9.0); NEUTROPHILS # (AUTO) 15.3 K/uL (1.8-7.7); NEUTROPHILS % (AUTO) 70.2 % (40.0-70.0); PLATELET COUNT (AUTO) 350 K/uL (150-450); RED BLOOD CELL COUNT(AUTO) 2.93 MIL/uL (4.50-5.90); RED CELL DISTRIBUTION WIDTH 13.7 % (11.5-14.5)
[2019-08-21] MEDS: HEPARIN SODIUM 25000 UNITS/D5W 250 ML IV PRN ×2 (06:13→21:54)
[2019-08-21 06:37] LABS: D-DIMER 4.09 mg/L FEU (0.00-0.50)
[2019-08-21 06:52] LABS: GLUCOSE,POINT OF CARE 159 MG/DL (70-110)
[2019-08-21] MEDS: INSULIN LISPRO 100 UNITS/ML SQ PRN ×3 (07:00→18:14)
[2019-08-21 07:17] LABS: ALBUMIN 1.8 g/dL (3.4-5.0); BILIRUBIN,TOTAL 0.6 mg/dL (0.1-1.0); C-REACTIVE PROTEIN QUANT 1.44 mg/dL (0.00-0.30); CALCIUM, TOTAL 8.2 mg/dL (8.8-10.5); CREATININE 4.71 mg/dL (0.60-1.30); MAGNESIUM 2.3 mg/dL (1.80-2.40); PHOSPHORUS 5.7 mg/dL (2.5-4.9); POTASSIUM 3.4 mmol/L (3.5-5.1); TOTAL PROTEIN, SERUM 6.1 g/dL (6.4-8.2)
[2019-08-21] MEDS: DOCUSATE SODIUM 100 MG/10 ML LIQUID UDCUP GT SCH ×2 (08:27→21:31)
[2019-08-21 08:42] LABS: INR 1.2 (0.9-1.1); PROTHROMBIN TIME 12.2 SEC (9.4-11.6)
[2019-08-21] MEDS: PANTOPRAZOLE SODIUM 40 MG/VIAL IVP SCH ×2 (08:44→21:30)
[2019-08-21] MEDS: INSULIN GLARGINE,HUM.REC.ANLOG 100 UNITS/ML SQ SCH ×2 (08:45→21:31)
[2019-08-21] MEDS: FUROSEMIDE 40 MG/4 ML VIAL IVP SCH (08:46)
[2019-08-21] MEDS: AmLODIPine BESYLATE 5 MG TABLET GT SCH (08:46)
[2019-08-21] MEDS ORDERED: PERFLUTREN PROTEIN-A MICROSPHERES 0.22 MG/ML 3 ML VIAL IVP ONE (11:15)
[2019-08-21 11:58] LABS: GLUCOSE,POINT OF CARE 167 MG/DL (70-110)
[2019-08-21] MEDS: VANCOMYCIN HCL 250 MG/5 ML SOLUTION ORAL.SYG PO SCH ×2 (12:41→18:30)
[2019-08-21 12:47] LABS: ABG A-A DIFF O2 117.4 mmHg (10-20.0); ABG BASE EXCESS 7.8 mmol/L (-2.0-3.0); ABG CARBOXYHEMOGLOBIN 0.3 % (0.0-1.5); ABG METHEMOGLOBIN 0.2 % (0.0-1.5); ABG OXYGEN SATURATION 97.9 % (95.0-98.0); ABG OXYHEMOGLOBIN 97.4 % (94.0-100.0); ABG PCO2 43 mmHg (35-45); ABG PH 7.477 (7.35-7.450); ABG TOTAL HEMOGLOBIN 10.1 G/dL (12.0-18.0); PO2, ARTERIAL BG 117.1 mmHg (84.0-92.0); SOURCE, BLOOD GAS ARTERIAL
[2019-08-21 12:48] LABS: O2 DEVICE,BLOOD GAS VENTILATOR (ROOM AIR); PEEP,BG 5 cm H2O; PRESSURE SUPPORT, BG 10 cm H2O; SITE, BLOOD GAS ARTERIAL LINE; SPONTANEOUS VT, BG 525 ml; VENT MODE, BG CPAP (ROOM AIR)
[2019-08-21] MEDS: DEXMEDETOMIDINE HCL 200 MCG in SODIUM CHLORIDE 0.9% 48 ML IV PRN ×2 (14:26→21:51)
[2019-08-21] MEDS ORDERED: FLUCONAZOLE 200 MG/NACL ISOOSM 100 ML IV ONE (14:30)
[2019-08-21 18:03] LABS: GLUCOSE,POINT OF CARE 145 MG/DL (70-110)
[2019-08-21] MEDS: ACETAMINOPHEN 325 MG TABLET PO PRN (18:30)
[2019-08-21] MEDS: HydrALAZINE HCL 20 MG/ML VIAL IVP PRN (21:32)
[2019-08-21 21:35] LABS: GLUCOSE,POINT OF CARE 132 MG/DL (70-110)
[2019-08-22] VITALS (41 sets, daily range): BP systolic 59–230; BP diastolic 24–78
[2019-08-22] MEDS: VANCOMYCIN HCL 250 MG/5 ML SOLUTION ORAL.SYG PO SCH ×2 (00:04→06:11)
[2019-08-22] MEDS: MetroNIDAZOLE 500 MG/NACL 100 ML IV SCH ×3 (04:06→21:12)
[2019-08-22] MEDS: HydrALAZINE HCL 20 MG/ML VIAL IVP PRN (04:06)
[2019-08-22] MEDS: INSULIN LISPRO 100 UNITS/ML SQ PRN ×2 (05:31→06:52)
[2019-08-22 05:38] LABS: GLUCOSE,POINT OF CARE 242 MG/DL (70-110)
[2019-08-22 05:54] LABS: HEMATOCRIT 24.2 % (41-53); MEAN CORPUSCULAR HEMOGLOBIN 30.1 pg (26.0-34.0); MEAN CORPUSCULAR HGB CONC 33.2 G/dL (31.0-37.0); MEAN CORPUSCULAR VOLUME 91 fL (80-100); PLATELET COUNT (AUTO) 370 K/uL (150-450); RED BLOOD CELL COUNT(AUTO) 2.67 MIL/uL (4.50-5.90); RED CELL DISTRIBUTION WIDTH 14.2 % (11.5-14.5)
[2019-08-22 06:22] LABS: D-DIMER 3.8 mg/L FEU (0.00-0.50); INR 1.3 (0.9-1.1); PROTHROMBIN TIME 13.4 SEC (9.4-11.6)
[2019-08-22 06:24] LABS: APPEARANCE,URINE CLOUDY (CLEAR); BILIRUBIN,URINE NEGATIVE (NEGATIVE); GLUCOSE, URINE (UA) NEGATIVE (NEGATIVE); KETONES,URINE TRACE mg/dL (NEGATIVE); LEUKOCYTE ESTERASE ,URINE MODERATE (NEGATIVE); NITRATE,URINE NEGATIVE (NEGATIVE); OCCULT BLOOD,URINE SMALL (NEGATIVE); PROTEIN,URINE TRACE (NEGATIVE); UROBILINOGEN,URINE 0.2 mg/dL (<=1.0)
[2019-08-22 06:27] LABS: WBC,URINE 26-50 /HPF (0-5)
[2019-08-22 06:28] LABS: BACTERIA,URINE Moderate /HPF (None Seen); YEAST,URINE Many /HPF (None Seen)
[2019-08-22 06:47] LABS: ALBUMIN 1.9 g/dL (3.4-5.0); BILIRUBIN,TOTAL 0.7 mg/dL (0.1-1.0); C-REACTIVE PROTEIN QUANT 2.1 mg/dL (0.00-0.30); CALCIUM, TOTAL 8.4 mg/dL (8.8-10.5); CREATININE 4.52 mg/dL (0.60-1.30); MAGNESIUM 2.2 mg/dL (1.80-2.40); PHOSPHORUS 5.9 mg/dL (2.5-4.9); POTASSIUM 3.4 mmol/L (3.5-5.1)
[2019-08-22 06:59] LABS: BAND NEUTROPHILS % (MANUAL) 8 % (0-5); EOSINOPHILS % (MANUAL) 1 % (1-6); LYMPHOCYTES % (MANUAL) 16 % (22-44); MONOCYTES % (MANUAL) 2 % (2-9); SEGMENTED NEUTROPHILS % 73 % (40-70)
[2019-08-22 07:43] LABS: GLUCOSE,POINT OF CARE 249 MG/DL (70-110)
[2019-08-22] MEDS: AmLODIPine BESYLATE 5 MG TABLET GT SCH (09:00)
[2019-08-22] MEDS: PANTOPRAZOLE SODIUM 40 MG/VIAL IVP SCH ×2 (09:00→20:57)
[2019-08-22] MEDS: DOCUSATE SODIUM 100 MG/10 ML LIQUID UDCUP GT SCH ×2 (09:00→20:57)
[2019-08-22 10:16] LABS: HEMATOCRIT 24.8 % (41-53); HEMOGLOBIN 8.5 g/dL (13.5-17.5); MEAN CORPUSCULAR HEMOGLOBIN 31.1 pg (26.0-34.0); MEAN CORPUSCULAR HGB CONC 34.5 G/dL (31.0-37.0); MEAN CORPUSCULAR VOLUME 90 fL (80-100); PLATELET COUNT (AUTO) 326 K/uL (150-450); RED BLOOD CELL COUNT(AUTO) 2.75 MIL/uL (4.50-5.90); RED CELL DISTRIBUTION WIDTH 13.7 % (11.5-14.5)
[2019-08-22 10:31] LABS: CALCIUM, TOTAL 8.6 mg/dL (8.8-10.5); CREATININE 4.66 mg/dL (0.60-1.30); POTASSIUM 3.6 mmol/L (3.5-5.1)
[2019-08-22 10:36] LABS: BILIRUBIN,TOTAL 0.7 mg/dL (0.1-1.0); TOTAL PROTEIN, SERUM 6.2 g/dL (6.4-8.2)
[2019-08-22 10:50] LABS: LACTIC ACID 1.9 mmol/L (0.4-2.0)
[2019-08-22 10:51] LABS: BAND NEUTROPHILS % (MANUAL) 16 % (0-5); LYMPHOCYTES % (MANUAL) 6 % (22-44); MONOCYTES % (MANUAL) 5 % (2-9); SEGMENTED NEUTROPHILS % 73 % (40-70)
[2019-08-22] MEDS ORDERED: *CLINICAL-CEFEPIME DOSING CLINICAL ONE (11:45)
[2019-08-22] MEDS ORDERED: DAPTOMYCIN 500 MG in SODIUM CHLORIDE 0.9% 50 ML IV SCH (12:00)
[2019-08-22] MEDS ORDERED: CEFEPIME HCL 1 GM in DEXTROSE 5%-WATER 50 ML IV ONE (12:00)
[2019-08-22 12:16] LABS: ABG A-A DIFF O2 139.3 mmHg (10-20.0); ABG BASE EXCESS 4.5 mmol/L (-2.0-3.0); ABG CARBOXYHEMOGLOBIN 0.4 % (0.0-1.5); ABG HCO3 28.2 mmol/L (22.0-26.0); ABG METHEMOGLOBIN 0.4 % (0.0-1.5); ABG OXYGEN CONTENT 8.5 mL/dL (15.0-23.0); ABG OXYGEN SATURATION 97.3 % (95.0-98.0); ABG OXYHEMOGLOBIN 96.5 % (94.0-100.0); ABG PCO2 38 mmHg (35-45); PO2, ARTERIAL BG 101.5 mmHg (84.0-92.0); SOURCE, BLOOD GAS ARTERIAL; TEMPERATURE, FAHRENHEIT, BG 98.9 FAHREN (96.0-98.6)
[2019-08-22 12:35] LABS: ABG TOTAL HEMOGLOBIN 6.1 G/dL (12.0-18.0); O2 DEVICE,BLOOD GAS VENTILATOR (ROOM AIR); SITE, BLOOD GAS A LINE
[2019-08-22 12:36] LABS: PEEP,BG 5 cm H2O; PRESSURE SUPPORT, BG 10 cm H2O; SPONTANEOUS VT, BG 525 ml; VENT MODE, BG CPAP (ROOM AIR)
[2019-08-22 13:52] LABS: GLUCOSE,POINT OF CARE 172 MG/DL (70-110)
[2019-08-22 15:20] LABS: HEMATOCRIT 23.9 % (41-53); MEAN CORPUSCULAR HEMOGLOBIN 30.3 pg (26.0-34.0); MEAN CORPUSCULAR HGB CONC 33.5 G/dL (31.0-37.0); MEAN CORPUSCULAR VOLUME 90 fL (80-100); PLATELET COUNT (AUTO) 274 K/uL (150-450); RED BLOOD CELL COUNT(AUTO) 2.65 MIL/uL (4.50-5.90); RED CELL DISTRIBUTION WIDTH 14.1 % (11.5-14.5)
[2019-08-22 16:29] LABS: BAND NEUTROPHILS % (MANUAL) 11 % (0-5); LYMPHOCYTES % (MANUAL) 5 % (22-44); MONOCYTES % (MANUAL) 4 % (2-9); SEGMENTED NEUTROPHILS % 80 % (40-70)
[2019-08-22] MEDS ORDERED: HEPARIN SODIUM,PORCINE 1,000 UNITS/ML VIAL IVP ONE (17:05)
[2019-08-22] MEDS: FLUCONAZOLE 100 MG/NACL ISOOSM 50 ML IV SCH (17:05)
[2019-08-22 20:35] LABS: GLUCOSE,POINT OF CARE 181 MG/DL (70-110)
[2019-08-22] MEDS ORDERED: SODIUM CHLORIDE 0.9% 500 ML IV ONE (20:54)
[2019-08-22] MEDS: INSULIN GLARGINE,HUM.REC.ANLOG 100 UNITS/ML SQ SCH (20:58)
[2019-08-22] MEDS ORDERED: SODIUM CHLORIDE 0.9% 250 ML IV ONE (21:02)
[2019-08-22 22:29] LABS: HEMATOCRIT 18.2 % (41-53)
[2019-08-22] MEDS ORDERED: SODIUM CHLORIDE 0.9% 100 ML ONE (23:14)
[2019-08-22] MEDS ORDERED: IOVERSOL 350 MG/ML 150 ML VIAL ONE (23:14)
[2019-08-22] MEDS: DEXMEDETOMIDINE HCL 200 MCG in SODIUM CHLORIDE 0.9% 48 ML IV PRN (23:16)
[2019-08-22 23:37] LABS: GLUCOSE,POINT OF CARE 175 MG/DL (70-110)
[2019-08-23] VITALS (25 sets, daily range): BP systolic 112–165; BP diastolic 34–67
[2019-08-23] MEDS ORDERED: SODIUM CHLORIDE 0.9% 250 ML IV ONE ×2 (01:00→07:55)
[2019-08-23] MEDS: INSULIN LISPRO 100 UNITS/ML SQ PRN ×2 (01:02→05:33)
[2019-08-23] MEDS: DEXMEDETOMIDINE HCL 200 MCG in SODIUM CHLORIDE 0.9% 48 ML IV PRN ×3 (02:44→12:53)
[2019-08-23] MEDS: MetroNIDAZOLE 500 MG/NACL 100 ML IV SCH ×3 (04:45→19:40)
[2019-08-23 06:07] LABS: BASOPHILS % (AUTO) 0.5 % (0.0-2.0); EOSINOPHILS % (AUTO) 3.7 % (1.0-6.0); LYMPHOCYTES # (AUTO) 1.9 K/uL (1.0-4.8); LYMPHOCYTES % (AUTO) 10.6 % (22.0-44.0); MEAN CORPUSCULAR HEMOGLOBIN 29.4 pg (26.0-34.0); MEAN CORPUSCULAR HGB CONC 33.8 G/dL (31.0-37.0); MEAN CORPUSCULAR VOLUME 87 fL (80-100); MONOCYTES # (AUTO) 1.3 K/uL (0.1-1.0); MONOCYTES % (AUTO) 7.4 % (2.0-9.0); NEUTROPHILS # (AUTO) 13.8 K/uL (1.8-7.7); NEUTROPHILS % (AUTO) 77.8 % (40.0-70.0); PLATELET COUNT (AUTO) 209 K/uL (150-450); RED BLOOD CELL COUNT(AUTO) 2.25 MIL/uL (4.50-5.90); RED CELL DISTRIBUTION WIDTH 15.8 % (11.5-14.5)
[2019-08-23 06:35] LABS: D-DIMER 3.64 mg/L FEU (0.00-0.50)
[2019-08-23 06:37] LABS: HEMOGLOBIN 6.6 g/dL (13.5-17.5)
[2019-08-23 06:38] LABS: HEMATOCRIT 19.6 % (41-53)
[2019-08-23 07:12] LABS: ALBUMIN 1.8 g/dL (3.4-5.0); BILIRUBIN,TOTAL 0.6 mg/dL (0.1-1.0); C-REACTIVE PROTEIN QUANT 4.73 mg/dL (0.00-0.30); CREATININE 4.23 mg/dL (0.60-1.30); TOTAL PROTEIN, SERUM 5.2 g/dL (6.4-8.2)
[2019-08-23 07:24] LABS: POTASSIUM 2.8 mmol/L (3.5-5.1)
[2019-08-23 07:49] LABS: GLUCOSE,POINT OF CARE 168 MG/DL (70-110)
[2019-08-23 07:49] LABS: GLUCOSE,POINT OF CARE 146 MG/DL (70-110)
[2019-08-23] MEDS: INSULIN GLARGINE,HUM.REC.ANLOG 100 UNITS/ML SQ SCH ×2 (08:58→21:35)
[2019-08-23] MEDS: PANTOPRAZOLE SODIUM 40 MG/VIAL IVP SCH ×2 (08:58→19:39)
[2019-08-23] MEDS: DOCUSATE SODIUM 100 MG/10 ML LIQUID UDCUP GT SCH ×2 (08:58→19:40)
[2019-08-23] MEDS: POTASSIUM CHL 10 MEQ/WATER 50 ML IV SCH ×4 (09:44→23:51)
[2019-08-23 13:33] LABS: ABG BASE EXCESS 4.4 mmol/L (-2.0-3.0); ABG HCO3 28.2 mmol/L (22.0-26.0); ABG PCO2 38 mmHg (35-45); ABG PH 7.481 (7.35-7.450); PO2, ARTERIAL BG 111.2 mmHg (84.0-92.0); SOURCE, BLOOD GAS ARTERIAL; TEMPERATURE, FAHRENHEIT, BG 97.3 FAHREN (96.0-98.6)
[2019-08-23 13:34] LABS: ABG A-A DIFF O2 94.5 mmHg (10-20.0); ABG CARBOXYHEMOGLOBIN 0.8 % (0.0-1.5); ABG METHEMOGLOBIN 0.2 % (0.0-1.5); ABG OXYGEN CONTENT 17.5 mL/dL (15.0-23.0); ABG OXYGEN SATURATION 97.9 % (95.0-98.0); ABG OXYHEMOGLOBIN 96.9 % (94.0-100.0); ABG TOTAL HEMOGLOBIN 12.7 G/dL (12.0-18.0); O2 DEVICE,BLOOD GAS VENTILATOR (ROOM AIR); PEEP,BG 5 cm H2O; PRESSURE SUPPORT, BG 8 cm H2O; SITE, BLOOD GAS A LINE; SPONTANEOUS VT, BG 540 ml; VENT MODE, BG CPAP (ROOM AIR)
[2019-08-23] MEDS: FLUCONAZOLE 100 MG/NACL ISOOSM 50 ML IV SCH (16:38)
[2019-08-23] MEDS ORDERED: HydrALAZINE HCL 20 MG/ML VIAL ONE (17:19)
[2019-08-23] MEDS: HydrALAZINE HCL 20 MG/ML VIAL IVP PRN (18:05)
[2019-08-23 19:01] LABS: GLUCOSE,POINT OF CARE 140 MG/DL (70-110)
[2019-08-23] MEDS ORDERED: SODIUM CHLORIDE 0.9% 2,000 ML ONE (22:01)
[2019-08-23] MEDS: HEPARIN SODIUM 25000 UNITS/D5W 250 ML IV PRN (22:45)
[2019-08-23 23:41] LABS: GLUCOSE,POINT OF CARE 137 MG/DL (70-110)
[2019-08-24] VITALS: BP 126/63
[2019-08-24 04:00] VITALS: BP 135/67
[2019-08-24] MEDS: MORPHINE SULFATE 2 MG/ML SYRINGE IVP PRN (04:40)
[2019-08-24] MEDS: MetroNIDAZOLE 500 MG/NACL 100 ML IV SCH ×2 (04:40→13:33)
[2019-08-24 05:33] LABS: HEMATOCRIT 28.4 % (41-53); HEMOGLOBIN 9.7 g/dL (13.5-17.5); MEAN CORPUSCULAR HEMOGLOBIN 29.8 pg (26.0-34.0); MEAN CORPUSCULAR HGB CONC 34.2 G/dL (31.0-37.0); MEAN CORPUSCULAR VOLUME 87 fL (80-100); PLATELET COUNT (AUTO) 203 K/uL (150-450); RED BLOOD CELL COUNT(AUTO) 3.26 MIL/uL (4.50-5.90); RED CELL DISTRIBUTION WIDTH 15.5 % (11.5-14.5)
[2019-08-24 06:03] LABS: D-DIMER 13.19 mg/L FEU (0.00-0.50)
[2019-08-24 06:24] LABS: ALBUMIN 2.1 g/dL (3.4-5.0); BILIRUBIN,TOTAL 0.6 mg/dL (0.1-1.0); C-REACTIVE PROTEIN QUANT 3.31 mg/dL (0.00-0.30); CALCIUM, TOTAL 8.2 mg/dL (8.8-10.5); CREATININE 2.73 mg/dL (0.60-1.30); PHOSPHORUS 2.8 mg/dL (2.5-4.9)
[2019-08-24 06:53] LABS: BAND NEUTROPHILS % (MANUAL) 4 % (0-5); BASOPHILS % (MANUAL) 1 % (0-2); EOSINOPHILS % (MANUAL) 11 % (1-6); LYMPHOCYTES % (MANUAL) 12 % (22-44); METAMYELOCYTES % 2 % (0-0); MONOCYTES % (MANUAL) 6 % (2-9); SEGMENTED NEUTROPHILS % 64 % (40-70)
[2019-08-24 07:18] LABS: GLUCOMETER DEV NAME(LOC) 4E.2; GLUCOSE,POINT OF CARE 135 MG/DL (70-110)
[2019-08-24 08:00] VITALS: BP 140/72
[2019-08-24] MEDS: POTASSIUM CHL 10 MEQ/WATER 50 ML IV SCH ×4 (08:08→21:16)
[2019-08-24] MEDS: PANTOPRAZOLE SODIUM 40 MG/VIAL IVP SCH ×2 (08:37→21:15)
[2019-08-24] MEDS: DOCUSATE SODIUM 100 MG/10 ML LIQUID UDCUP GT SCH ×2 (08:37→21:30)
[2019-08-24] MEDS: INSULIN GLARGINE,HUM.REC.ANLOG 100 UNITS/ML SQ SCH ×3 (08:39→21:15)
[2019-08-24] MEDS ORDERED: CEFEPIME HCL 1 GM in DEXTROSE 5%-WATER 50 ML IV ONE (09:00)
[2019-08-24 12:00] VITALS: BP 151/57
[2019-08-24 13:24] LABS: GLUCOSE,POINT OF CARE 105 MG/DL (70-110)
[2019-08-24] MEDS: INSULIN LISPRO 100 UNITS/ML SQ PRN ×2 (15:00→21:14)
[2019-08-24] MEDS: HEPARIN SODIUM 25000 UNITS/D5W 250 ML IV PRN ×2 (15:22→18:21)
[2019-08-24] MEDS: FLUCONAZOLE 100 MG/NACL ISOOSM 50 ML IV SCH (16:06)
[2019-08-24 17:31] LABS: CALCIUM, TOTAL 7.8 mg/dL (8.8-10.5); CREATININE 2.78 mg/dL (0.60-1.30); POTASSIUM 3.2 mmol/L (3.5-5.1)
[2019-08-24] MEDS ORDERED: POTASSIUM CHL 20 MEQ/0.9% NS 1,000 ML IV ONE (18:00)
[2019-08-24] MEDS ORDERED: CEFEPIME HCL 0.5 GM in DEXTROSE 5%-WATER 50 ML IV SCH (18:00)
[2019-08-24] MEDS: HEPARIN SODIUM,PORCINE 5,000 UNITS/ML VIAL IVP PRN (18:20)
[2019-08-24 18:21] VITALS: BP 164/74
[2019-08-24] MEDS: HydrALAZINE HCL 20 MG/ML VIAL IVP PRN (18:21)
[2019-08-24] MEDS ORDERED: SODIUM CHLORIDE 0.9% 250 ML IV ONE (18:39)
[2019-08-24 20:00] VITALS: BP 143/72
[2019-08-24 20:34] LABS: GLUCOMETER DEV NAME(LOC) 5N.3; GLUCOSE,POINT OF CARE 132 MG/DL (70-110)
[2019-08-24 23:20] LABS: GLUCOMETER DEV NAME(LOC) 5N.3; GLUCOSE,POINT OF CARE 178 MG/DL (70-110)
[2019-08-25] VITALS (7 sets, daily range): BP systolic 133–155; BP diastolic 66–77
[2019-08-25] MEDS: ACETAMINOPHEN 325 MG TABLET PO PRN (06:10)
[2019-08-25 07:12] LABS: BASOPHILS % (AUTO) 1.4 % (0.0-2.0); HEMATOCRIT 27.7 % (41-53); HEMOGLOBIN 9.7 g/dL (13.5-17.5); LYMPHOCYTES # (AUTO) 2.5 K/uL (1.0-4.8); MEAN CORPUSCULAR HGB CONC 35.1 G/dL (31.0-37.0); MEAN CORPUSCULAR VOLUME 88 fL (80-100); MONOCYTES # (AUTO) 1.4 K/uL (0.1-1.0); MONOCYTES % (AUTO) 8.7 % (2.0-9.0); NEUTROPHILS % (AUTO) 57.3 % (40.0-70.0); PLATELET COUNT (AUTO) 230 K/uL (150-450); RED BLOOD CELL COUNT(AUTO) 3.14 MIL/uL (4.50-5.90); RED CELL DISTRIBUTION WIDTH 15.3 % (11.5-14.5)
[2019-08-25 07:35] LABS: ALBUMIN 2.2 g/dL (3.4-5.0); BILIRUBIN,TOTAL 0.7 mg/dL (0.1-1.0); C-REACTIVE PROTEIN QUANT 1.87 mg/dL (0.00-0.30); CALCIUM, TOTAL 7.8 mg/dL (8.8-10.5); CREATININE 2.74 mg/dL (0.60-1.30); MAGNESIUM 1.8 mg/dL (1.80-2.40); PHOSPHORUS 2.5 mg/dL (2.5-4.9); POTASSIUM 3.3 mmol/L (3.5-5.1)
[2019-08-25 07:42] LABS: EOSINOPHILS % (AUTO) 16.6 % (1.0-6.0)
[2019-08-25 08:37] LABS: GLUCOMETER DEV NAME(LOC) 4E.2; GLUCOSE,POINT OF CARE 108 MG/DL (70-110)
[2019-08-25 08:37] LABS: GLUCOMETER DEV NAME(LOC) 4E.2; GLUCOSE,POINT OF CARE 158 MG/DL (70-110)
[2019-08-25] MEDS: PANTOPRAZOLE SODIUM 40 MG/VIAL IVP SCH ×2 (09:15→21:32)
[2019-08-25] MEDS ORDERED: POTASSIUM CHLORIDE 20 MEQ ER TABLET PO ONE (09:15)
[2019-08-25] MEDS: DOCUSATE SODIUM 100 MG/10 ML LIQUID UDCUP GT SCH ×2 (09:15→21:00)
[2019-08-25] MEDS: INSULIN GLARGINE,HUM.REC.ANLOG 100 UNITS/ML SQ SCH ×2 (09:20→21:33)
[2019-08-25] MEDS: HEPARIN SODIUM 25000 UNITS/D5W 250 ML IV PRN (09:29)
[2019-08-25] MEDS: FLUCONAZOLE 100 MG/NACL ISOOSM 50 ML IV SCH (16:42)
[2019-08-25] MEDS: INSULIN LISPRO 100 UNITS/ML SQ PRN ×2 (18:26→21:34)
[2019-08-25 18:28] LABS: GLUCOMETER DEV NAME(LOC) 5S.2A; GLUCOSE,POINT OF CARE 84 MG/DL (70-110)
[2019-08-25 18:28] LABS: GLUCOMETER DEV NAME(LOC) 5S.2A; GLUCOSE,POINT OF CARE 94 MG/DL (70-110)
[2019-08-25 20:34] LABS: GLUCOMETER DEV NAME(LOC) 5N.3; GLUCOSE,POINT OF CARE 234 MG/DL (70-110)
[2019-08-25 22:25] LABS: GLUCOMETER DEV NAME(LOC) 5S.2A; GLUCOSE,POINT OF CARE 229 MG/DL (70-110)
[2019-08-25] MEDS ORDERED: LORazepam 2 MG/ML VIAL IVP PRN (22:45)
[2019-08-26 01:02] VITALS: BP 145/78
[2019-08-26 04:27] VITALS: BP 139/81
[2019-08-26] MEDS: HEPARIN SODIUM 25000 UNITS/D5W 250 ML IV PRN (05:58)
[2019-08-26 07:23] LABS: EOSINOPHILS % (AUTO) 8.7 % (1.0-6.0); HEMATOCRIT 26.9 % (41-53); HEMOGLOBIN 9.1 g/dL (13.5-17.5); LYMPHOCYTES # (AUTO) 2.7 K/uL (1.0-4.8); LYMPHOCYTES % (AUTO) 16.4 % (22.0-44.0); MEAN CORPUSCULAR HEMOGLOBIN 29.8 pg (26.0-34.0); MEAN CORPUSCULAR HGB CONC 33.7 G/dL (31.0-37.0); MEAN CORPUSCULAR VOLUME 89 fL (80-100); MONOCYTES # (AUTO) 1.5 K/uL (0.1-1.0); MONOCYTES % (AUTO) 8.9 % (2.0-9.0); NEUTROPHILS # (AUTO) 10.8 K/uL (1.8-7.7); PLATELET COUNT (AUTO) 239 K/uL (150-450); RED BLOOD CELL COUNT(AUTO) 3.04 MIL/uL (4.50-5.90); RED CELL DISTRIBUTION WIDTH 15.6 % (11.5-14.5)
[2019-08-26 08:00] VITALS: BP 150/75
[2019-08-26] MEDS: PANTOPRAZOLE SODIUM 40 MG/VIAL IVP SCH ×2 (08:26→22:04)
[2019-08-26] MEDS: DOCUSATE SODIUM 100 MG/10 ML LIQUID UDCUP GT SCH ×2 (08:26→21:00)
[2019-08-26 08:33] LABS: ALBUMIN 2.3 g/dL (3.4-5.0); BILIRUBIN,TOTAL 0.8 mg/dL (0.1-1.0); C-REACTIVE PROTEIN QUANT 1.53 mg/dL (0.00-0.30); CALCIUM, TOTAL 7.9 mg/dL (8.8-10.5); CREATININE 2.52 mg/dL (0.60-1.30); POTASSIUM 3.2 mmol/L (3.5-5.1); TOTAL PROTEIN, SERUM 6.1 g/dL (6.4-8.2)
[2019-08-26 08:34] LABS: D-DIMER 4.63 mg/L FEU (0.00-0.50)
[2019-08-26] MEDS: VITAMIN B COMP/VIT C/FOLIC ACID CAPSULE PO SCH (09:30)
[2019-08-26] MEDS: INSULIN GLARGINE,HUM.REC.ANLOG 100 UNITS/ML SQ SCH ×2 (09:46→21:55)
[2019-08-26] MEDS: FLUCONAZOLE 100 MG TABLET PO SCH (12:37)
[2019-08-26] MEDS ORDERED: POTASSIUM CHLORIDE 20 MEQ ER TABLET PO ONE (15:00)
[2019-08-26 16:26] VITALS: BP 135/82
[2019-08-26 17:35] LABS: GLUCOMETER DEV NAME(LOC) 5N.3; GLUCOSE,POINT OF CARE 182 MG/DL (70-110)
[2019-08-26 20:55] VITALS: BP 133/52
[2019-08-26] MEDS: INSULIN LISPRO 100 UNITS/ML SQ PRN (21:56)
[2019-08-26 22:05] LABS: GLUCOMETER DEV NAME(LOC) 5N.3; GLUCOSE,POINT OF CARE 123 MG/DL (70-110)
[2019-08-26] MEDS: ACETAMINOPHEN 325 MG TABLET PO PRN (22:46)
[2019-08-26 23:55] VITALS: BP 137/73
[2019-08-27] MEDS: HEPARIN SODIUM 25000 UNITS/D5W 250 ML IV PRN ×2 (00:44→14:01)
[2019-08-27 05:05] VITALS: BP 126/65
[2019-08-27] MEDS: ACETAMINOPHEN 325 MG TABLET PO PRN ×2 (05:51→21:13)
[2019-08-27 07:07] LABS: HEMATOCRIT 25.2 % (41-53); HEMOGLOBIN 8.6 g/dL (13.5-17.5); MEAN CORPUSCULAR HEMOGLOBIN 30.5 pg (26.0-34.0); MEAN CORPUSCULAR VOLUME 90 fL (80-100); PLATELET COUNT (AUTO) 221 K/uL (150-450); RED BLOOD CELL COUNT(AUTO) 2.81 MIL/uL (4.50-5.90); RED CELL DISTRIBUTION WIDTH 15.4 % (11.5-14.5)
[2019-08-27 07:34] VITALS: BP 122/68
[2019-08-27 08:03] LABS: D-DIMER 5.11 mg/L FEU (0.00-0.50)
[2019-08-27 08:22] LABS: ALBUMIN 2.2 g/dL (3.4-5.0); BILIRUBIN,TOTAL 0.8 mg/dL (0.1-1.0); C-REACTIVE PROTEIN QUANT 1.44 mg/dL (0.00-0.30); CALCIUM, TOTAL 7.7 mg/dL (8.8-10.5); CREATININE 2.28 mg/dL (0.60-1.30); MAGNESIUM 1.6 mg/dL (1.80-2.40); PHOSPHORUS 3.4 mg/dL (2.5-4.9); POTASSIUM 3.2 mmol/L (3.5-5.1); TOTAL PROTEIN, SERUM 5.9 g/dL (6.4-8.2)
[2019-08-27] MEDS: DOCUSATE SODIUM 100 MG/10 ML LIQUID UDCUP GT SCH ×2 (08:36→21:00)
[2019-08-27] MEDS: VITAMIN B COMP/VIT C/FOLIC ACID CAPSULE PO SCH (08:37)
[2019-08-27] MEDS: FLUCONAZOLE 100 MG TABLET PO SCH (08:37)
[2019-08-27] MEDS: PANTOPRAZOLE SODIUM 40 MG/VIAL IVP SCH ×2 (08:37→21:13)
[2019-08-27] MEDS: INSULIN GLARGINE,HUM.REC.ANLOG 100 UNITS/ML SQ SCH ×2 (08:50→21:15)
[2019-08-27 11:41] LABS: GLUCOMETER DEV NAME(LOC) 5S.2A; GLUCOSE,POINT OF CARE 104 MG/DL (70-110)
[2019-08-27 11:42] LABS: GLUCOMETER DEV NAME(LOC) 5S.2A; GLUCOSE,POINT OF CARE 114 MG/DL (70-110)
[2019-08-27 11:43] LABS: GLUCOMETER DEV NAME(LOC) 5S.2A; GLUCOSE,POINT OF CARE 202 MG/DL (70-110)
[2019-08-27 11:43] LABS: GLUCOMETER DEV NAME(LOC) 5S.2A; GLUCOSE,POINT OF CARE 99 MG/DL (70-110)
[2019-08-27 11:47] LABS: BAND NEUTROPHILS % (MANUAL) 2 % (0-5); EOSINOPHILS % (MANUAL) 2 % (1-6); LYMPHOCYTES % (MANUAL) 21 % (22-44); MONOCYTES % (MANUAL) 4 % (2-9); SEGMENTED NEUTROPHILS % 71 % (40-70)
[2019-08-27 12:44] VITALS: BP 108/71
[2019-08-27] MEDS ORDERED: POTASSIUM CHLORIDE 10% 40 MEQ/30 ML LIQUID UDCUP PO ONE ×2 (15:15→18:00)
[2019-08-27 15:52] VITALS: BP 114/68
[2019-08-27] MEDS ORDERED: POTASSIUM CHLORIDE 20 MEQ ER TABLET PO ONE (16:00)
[2019-08-27 17:13] LABS: GLUCOMETER DEV NAME(LOC) 5S.2A; GLUCOSE,POINT OF CARE 137 MG/DL (70-110)
[2019-08-27] MEDS: INSULIN LISPRO 100 UNITS/ML SQ PRN ×2 (18:27→21:14)
[2019-08-27 20:39] VITALS: BP 149/80
[2019-08-28] VITALS (7 sets, daily range): BP systolic 113–144; BP diastolic 58–84
[2019-08-28 05:03] LABS: GLUCOMETER DEV NAME(LOC) 5S.2A; GLUCOSE,POINT OF CARE 225 MG/DL (70-110)
[2019-08-28 05:04] LABS: GLUCOMETER DEV NAME(LOC) 5S.2A; GLUCOSE,POINT OF CARE 210 MG/DL (70-110)
[2019-08-28] MEDS: HEPARIN SODIUM 25000 UNITS/D5W 250 ML IV PRN ×2 (06:23→21:08)
[2019-08-28 07:48] LABS: GLUCOMETER DEV NAME(LOC) 5N.3; GLUCOSE,POINT OF CARE 111 MG/DL (70-110)
[2019-08-28] MEDS: FLUCONAZOLE 100 MG TABLET PO SCH (08:05)
[2019-08-28] MEDS: VITAMIN B COMP/VIT C/FOLIC ACID CAPSULE PO SCH (08:05)
[2019-08-28] MEDS: PANTOPRAZOLE SODIUM 40 MG/VIAL IVP SCH ×2 (08:06→21:25)
[2019-08-28] MEDS: DOCUSATE SODIUM 100 MG/10 ML LIQUID UDCUP GT SCH ×2 (08:06→21:00)
[2019-08-28 08:18] LABS: BASOPHILS % (AUTO) 0.9 % (0.0-2.0); HEMATOCRIT 24.5 % (41-53); HEMOGLOBIN 8.3 g/dL (13.5-17.5); LYMPHOCYTES # (AUTO) 2.6 K/uL (1.0-4.8); LYMPHOCYTES % (AUTO) 20.8 % (22.0-44.0); MEAN CORPUSCULAR HEMOGLOBIN 30.6 pg (26.0-34.0); MEAN CORPUSCULAR HGB CONC 33.9 G/dL (31.0-37.0); MEAN CORPUSCULAR VOLUME 90 fL (80-100); MONOCYTES # (AUTO) 1.3 K/uL (0.1-1.0); MONOCYTES % (AUTO) 10.2 % (2.0-9.0); NEUTROPHILS # (AUTO) 6.2 K/uL (1.8-7.7); PLATELET COUNT (AUTO) 226 K/uL (150-450); RED BLOOD CELL COUNT(AUTO) 2.71 MIL/uL (4.50-5.90); RED CELL DISTRIBUTION WIDTH 15.4 % (11.5-14.5)
[2019-08-28 08:48] LABS: EOSINOPHILS % (AUTO) 18.1 % (1.0-6.0)
[2019-08-28 08:50] LABS: D-DIMER 5.7 mg/L FEU (0.00-0.50)
[2019-08-28 09:11] LABS: ALBUMIN 2.3 g/dL (3.4-5.0); BILIRUBIN,TOTAL 0.7 mg/dL (0.1-1.0); C-REACTIVE PROTEIN QUANT 0.89 mg/dL (0.00-0.30); CALCIUM, TOTAL 7.7 mg/dL (8.8-10.5); CREATININE 2.1 mg/dL (0.60-1.30); POTASSIUM 3.2 mmol/L (3.5-5.1)
[2019-08-28] MEDS: INSULIN GLARGINE,HUM.REC.ANLOG 100 UNITS/ML SQ SCH ×2 (09:57→21:26)
[2019-08-28] MEDS ORDERED: MAGNESIUM SULFATE 2 GM/WATER 50 ML IV ONE (11:45)
[2019-08-28 11:51] LABS: GLUCOMETER DEV NAME(LOC) 5S.2A; GLUCOSE,POINT OF CARE 228 MG/DL (70-110)
[2019-08-28] MEDS: INSULIN LISPRO 100 UNITS/ML SQ PRN ×3 (12:01→21:27)
[2019-08-28 13:36] LABS: GLUCOMETER DEV NAME(LOC) 5S.2A; GLUCOSE,POINT OF CARE 187 MG/DL (70-110)
[2019-08-28] MEDS: MORPHINE SULFATE 2 MG/ML SYRINGE IVP PRN (13:51)
[2019-08-28] MEDS ORDERED: POTASSIUM CHLORIDE 10 MEQ ER TABLET PO ONE (16:45)
[2019-08-28 19:01] LABS: GLUCOMETER DEV NAME(LOC) 5S.2A; GLUCOSE,POINT OF CARE 269 MG/DL (70-110)
[2019-08-28 20:52] LABS: GLUCOMETER DEV NAME(LOC) 5S.2A; GLUCOSE,POINT OF CARE 223 MG/DL (70-110)
[2019-08-28] MEDS: ACETAMINOPHEN 325 MG TABLET PO PRN (21:25)
[2019-08-29 05:07] VITALS: BP 132/67
[2019-08-29] MEDS: INSULIN LISPRO 100 UNITS/ML SQ PRN ×3 (06:11→18:34)
[2019-08-29] MEDS: ACETAMINOPHEN 325 MG TABLET PO PRN ×2 (06:11→20:56)
[2019-08-29 07:02] LABS: GLUCOMETER DEV NAME(LOC) 5S.2A; GLUCOSE,POINT OF CARE 122 MG/DL (70-110)
[2019-08-29 07:25] VITALS: BP 123/63
[2019-08-29 07:27] LABS: BASOPHILS % (AUTO) 1.2 % (0.0-2.0); HEMATOCRIT 24.7 % (41-53); HEMOGLOBIN 8.4 g/dL (13.5-17.5); LYMPHOCYTES # (AUTO) 2.1 K/uL (1.0-4.8); LYMPHOCYTES % (AUTO) 15.9 % (22.0-44.0); MEAN CORPUSCULAR HEMOGLOBIN 30.6 pg (26.0-34.0); MEAN CORPUSCULAR HGB CONC 33.8 G/dL (31.0-37.0); MEAN CORPUSCULAR VOLUME 90 fL (80-100); MONOCYTES # (AUTO) 1.1 K/uL (0.1-1.0); MONOCYTES % (AUTO) 8.4 % (2.0-9.0); NEUTROPHILS # (AUTO) 7.9 K/uL (1.8-7.7); PLATELET COUNT (AUTO) 242 K/uL (150-450); RED BLOOD CELL COUNT(AUTO) 2.74 MIL/uL (4.50-5.90); RED CELL DISTRIBUTION WIDTH 15.6 % (11.5-14.5)
[2019-08-29 07:32] LABS: EOSINOPHILS % (AUTO) 15.5 % (1.0-6.0)
[2019-08-29 07:49] LABS: D-DIMER 5.66 mg/L FEU (0.00-0.50)
[2019-08-29 08:52] LABS: C-REACTIVE PROTEIN QUANT 1.15 mg/dL (0.00-0.30); CALCIUM, TOTAL 7.6 mg/dL (8.8-10.5); CREATININE 1.98 mg/dL (0.60-1.30); MAGNESIUM 1.8 mg/dL (1.80-2.40); PHOSPHORUS 3.8 mg/dL (2.5-4.9); POTASSIUM 3.3 mmol/L (3.5-5.1)
[2019-08-29] MEDS: MORPHINE SULFATE 2 MG/ML SYRINGE IVP PRN (09:01)
[2019-08-29] MEDS: VITAMIN B COMP/VIT C/FOLIC ACID CAPSULE PO SCH (09:26)
[2019-08-29] MEDS: PANTOPRAZOLE SODIUM 40 MG/VIAL IVP SCH ×2 (09:26→20:27)
[2019-08-29] MEDS: DOCUSATE SODIUM 100 MG/10 ML LIQUID UDCUP GT SCH ×2 (09:26→20:27)
[2019-08-29] MEDS: FLUCONAZOLE 100 MG TABLET PO SCH (09:26)
[2019-08-29] MEDS: INSULIN GLARGINE,HUM.REC.ANLOG 100 UNITS/ML SQ SCH ×2 (09:28→21:00)
[2019-08-29 11:50] VITALS: BP 116/70
[2019-08-29] MEDS ORDERED: POTASSIUM CHLORIDE 10 MEQ ER TABLET PO ONE (12:00)
[2019-08-29] MEDS ORDERED: MAGNESIUM SULFATE 1 GM in DEXTROSE 5%-WATER 50 ML IV ONE (12:00)
[2019-08-29 12:45] LABS: GLUCOMETER DEV NAME(LOC) 5N.3; GLUCOSE,POINT OF CARE 229 MG/DL (70-110)
[2019-08-29 16:05] VITALS: BP 121/76
[2019-08-29] MEDS: HEPARIN SODIUM,PORCINE 5,000 UNITS/ML VIAL IVP PRN (20:26)
[2019-08-29 20:57] VITALS: BP 129/72
[2019-08-30 00:47] VITALS: BP 120/70
[2019-08-30 03:09] LABS: GLUCOMETER DEV NAME(LOC) 5S.2A; GLUCOSE,POINT OF CARE 243 MG/DL (70-110)
[2019-08-30 03:09] LABS: GLUCOMETER DEV NAME(LOC) 5S.2A; GLUCOSE,POINT OF CARE 159 MG/DL (70-110)
[2019-08-30 03:09] LABS: GLUCOMETER DEV NAME(LOC) 5S.2A; GLUCOSE,POINT OF CARE 103 MG/DL (70-110)
[2019-08-30 04:00] VITALS: BP 130/73
[2019-08-30] MEDS: HEPARIN SODIUM 25000 UNITS/D5W 250 ML IV PRN ×2 (05:20→20:37)
[2019-08-30] MEDS: INSULIN LISPRO 100 UNITS/ML SQ PRN ×4 (06:08→20:43)
[2019-08-30 07:18] LABS: BASOPHILS % (AUTO) 1.4 % (0.0-2.0); HEMATOCRIT 24.5 % (41-53); HEMOGLOBIN 8.4 g/dL (13.5-17.5); LYMPHOCYTES # (AUTO) 1.6 K/uL (1.0-4.8); MEAN CORPUSCULAR HGB CONC 34.3 G/dL (31.0-37.0); MEAN CORPUSCULAR VOLUME 90 fL (80-100); MONOCYTES # (AUTO) 1.1 K/uL (0.1-1.0); MONOCYTES % (AUTO) 9.1 % (2.0-9.0); NEUTROPHILS % (AUTO) 66.5 % (40.0-70.0); PLATELET COUNT (AUTO) 240 K/uL (150-450); RED BLOOD CELL COUNT(AUTO) 2.71 MIL/uL (4.50-5.90); RED CELL DISTRIBUTION WIDTH 15.8 % (11.5-14.5)
[2019-08-30 07:35] VITALS: BP 130/73
[2019-08-30 07:55] LABS: ALBUMIN 2.5 g/dL (3.4-5.0); BILIRUBIN,TOTAL 0.7 mg/dL (0.1-1.0); C-REACTIVE PROTEIN QUANT 2.4 mg/dL (0.00-0.30); CALCIUM, TOTAL 7.7 mg/dL (8.8-10.5); CREATININE 1.89 mg/dL (0.60-1.30); POTASSIUM 3.6 mmol/L (3.5-5.1); TOTAL PROTEIN, SERUM 6.2 g/dL (6.4-8.2)
[2019-08-30] MEDS: DOCUSATE SODIUM 100 MG/10 ML LIQUID UDCUP GT SCH ×2 (09:00→20:44)
[2019-08-30] MEDS: PANTOPRAZOLE SODIUM 40 MG/VIAL IVP SCH ×2 (09:14→20:43)
[2019-08-30] MEDS: FLUCONAZOLE 100 MG TABLET PO SCH (09:14)
[2019-08-30] MEDS: VITAMIN B COMP/VIT C/FOLIC ACID CAPSULE PO SCH (09:14)
[2019-08-30] MEDS: INSULIN GLARGINE,HUM.REC.ANLOG 100 UNITS/ML SQ SCH ×2 (09:25→20:43)
[2019-08-30] MEDS: ACETAMINOPHEN 325 MG TABLET PO PRN (09:27)
[2019-08-30 12:05] VITALS: BP 124/72
[2019-08-30 12:21] LABS: GLUCOMETER DEV NAME(LOC) 5S.2A; GLUCOSE,POINT OF CARE 214 MG/DL (70-110)
[2019-08-30 12:32] LABS: MAGNESIUM 1.8 mg/dL (1.80-2.40)
[2019-08-30 12:33] LABS: GLUCOMETER DEV NAME(LOC) 5N.3; GLUCOSE,POINT OF CARE 171 MG/DL (70-110)
[2019-08-30 12:33] LABS: GLUCOMETER DEV NAME(LOC) 5N.3; GLUCOSE,POINT OF CARE 132 MG/DL (70-110)
[2019-08-30 20:24] VITALS: BP 132/58
[2019-08-31 00:45] VITALS: BP 132/75
[2019-08-31 03:09] LABS: GLUCOMETER DEV NAME(LOC) 5S.2A; GLUCOSE,POINT OF CARE 230 MG/DL (70-110)
[2019-08-31 03:09] LABS: GLUCOMETER DEV NAME(LOC) 5S.2A; GLUCOSE,POINT OF CARE 218 MG/DL (70-110)
[2019-08-31 05:26] VITALS: BP 134/74
[2019-08-31] MEDS: INSULIN LISPRO 100 UNITS/ML SQ PRN ×4 (05:52→20:49)
[2019-08-31 06:05] LABS: GLUCOMETER DEV NAME(LOC) 5N.3; GLUCOSE,POINT OF CARE 152 MG/DL (70-110)
[2019-08-31 06:13] LABS: BASOPHILS % (AUTO) 1.4 % (0.0-2.0); EOSINOPHILS % (AUTO) 11.6 % (1.0-6.0); HEMATOCRIT 25.4 % (41-53); HEMOGLOBIN 8.8 g/dL (13.5-17.5); LYMPHOCYTES # (AUTO) 2.6 K/uL (1.0-4.8); LYMPHOCYTES % (AUTO) 23.7 % (22.0-44.0); MEAN CORPUSCULAR HEMOGLOBIN 31.3 pg (26.0-34.0); MEAN CORPUSCULAR HGB CONC 34.7 G/dL (31.0-37.0); MEAN CORPUSCULAR VOLUME 90 fL (80-100); MONOCYTES % (AUTO) 9.3 % (2.0-9.0); NEUTROPHILS # (AUTO) 5.9 K/uL (1.8-7.7); PLATELET COUNT (AUTO) 265 K/uL (150-450); RED BLOOD CELL COUNT(AUTO) 2.82 MIL/uL (4.50-5.90); RED CELL DISTRIBUTION WIDTH 16.3 % (11.5-14.5)
[2019-08-31 06:37] LABS: D-DIMER 5.75 mg/L FEU (0.00-0.50)
[2019-08-31 07:20] LABS: ALBUMIN 2.6 g/dL (3.4-5.0); BILIRUBIN,TOTAL 0.7 mg/dL (0.1-1.0); C-REACTIVE PROTEIN QUANT 3.33 mg/dL (0.00-0.30); CALCIUM, TOTAL 8.3 mg/dL (8.8-10.5); CREATININE 1.83 mg/dL (0.60-1.30); POTASSIUM 3.7 mmol/L (3.5-5.1); TOTAL PROTEIN, SERUM 6.7 g/dL (6.4-8.2)
[2019-08-31 08:08] VITALS: BP 130/72
[2019-08-31] MEDS: DOCUSATE SODIUM 100 MG/10 ML LIQUID UDCUP GT SCH ×2 (09:00→20:51)
[2019-08-31] MEDS: PANTOPRAZOLE SODIUM 40 MG/VIAL IVP SCH ×2 (09:14→20:36)
[2019-08-31] MEDS: VITAMIN B COMP/VIT C/FOLIC ACID CAPSULE PO SCH (09:14)
[2019-08-31] MEDS: FLUCONAZOLE 100 MG TABLET PO SCH (09:14)
[2019-08-31] MEDS: INSULIN GLARGINE,HUM.REC.ANLOG 100 UNITS/ML SQ SCH ×2 (09:26→20:51)
[2019-08-31 10:48] VITALS: BP 113/61
[2019-08-31] MEDS: HEPARIN SODIUM 25000 UNITS/D5W 250 ML IV PRN (11:52)
[2019-08-31] MEDS ORDERED: IOVERSOL 350 MG/ML 150 ML VIAL ONE (13:09)
[2019-08-31] MEDS ORDERED: SODIUM CHLORIDE 0.9% 100 ML ONE (13:09)
[2019-08-31 14:05] LABS: GLUCOMETER DEV NAME(LOC) 5N.3; GLUCOSE,POINT OF CARE 266 MG/DL (70-110)
[2019-08-31 14:05] LABS: GLUCOMETER DEV NAME(LOC) 5N.3; GLUCOSE,POINT OF CARE 191 MG/DL (70-110)
[2019-08-31] MEDS ORDERED: OLANZapine 10 MG TABLET PO SCH (14:15)
[2019-08-31] MEDS ORDERED: QUEtiapine FUMARATE 200 MG TABLET PO SCH (14:15)
[2019-08-31] MEDS ORDERED: LITHIUM CARBONATE 300 MG CAPSULE PO ONE (14:15)
[2019-08-31] MEDS: ACETAMINOPHEN 325 MG TABLET PO PRN ×2 (14:37→20:36)
[2019-08-31 15:23] VITALS: BP 134/76
[2019-08-31 15:33] LABS: QUANTIFERON+, Nil Value 0.02 IU/mL; QUANTIFERON+,Mitogen Value 0.65 IU/mL; QUANTIFERON+,TB1 Antigen Value 0.11 IU/mL; QUANTIFERON, TB GOLD PLUS Negative (Negative)
[2019-08-31] MEDS: HEPARIN SODIUM,PORCINE 5,000 UNITS/ML VIAL IVP PRN (17:35)
[2019-08-31 20:12] VITALS: BP 137/72
[2019-08-31 20:35] LABS: GLUCOMETER DEV NAME(LOC) 5N.3; GLUCOSE,POINT OF CARE 228 MG/DL (70-110)
[2019-08-31 20:55] LABS: GLUCOMETER DEV NAME(LOC) 5N.3; GLUCOSE,POINT OF CARE 211 MG/DL (70-110)
[2019-08-31] MEDS ORDERED: LITHIUM CARBONATE 600 MG CAPSULE PO SCH (21:00)
[2019-09-01 00:37] VITALS: BP 132/76
[2019-09-01] MEDS: HEPARIN SODIUM 25000 UNITS/D5W 250 ML IV PRN (03:36)
[2019-09-01] MEDS: ACETAMINOPHEN 325 MG TABLET PO PRN ×2 (04:46→22:13)
[2019-09-01 05:14] VITALS: BP 144/76
[2019-09-01 05:44] LABS: GLUCOMETER DEV NAME(LOC) 5N.3; GLUCOSE,POINT OF CARE 154 MG/DL (70-110)
[2019-09-01] MEDS: INSULIN LISPRO 100 UNITS/ML SQ PRN ×4 (06:24→22:23)
[2019-09-01 07:31] VITALS: BP 144/73
[2019-09-01 08:27] LABS: BASOPHILS % (AUTO) 1.4 % (0.0-2.0); EOSINOPHILS % (AUTO) 11.6 % (1.0-6.0); HEMATOCRIT 28.8 % (41-53); HEMOGLOBIN 9.6 g/dL (13.5-17.5); LYMPHOCYTES # (AUTO) 2.7 K/uL (1.0-4.8); LYMPHOCYTES % (AUTO) 24.6 % (22.0-44.0); MEAN CORPUSCULAR HEMOGLOBIN 30.6 pg (26.0-34.0); MEAN CORPUSCULAR HGB CONC 33.4 G/dL (31.0-37.0); MEAN CORPUSCULAR VOLUME 92 fL (80-100); MONOCYTES # (AUTO) 0.9 K/uL (0.1-1.0); MONOCYTES % (AUTO) 8.6 % (2.0-9.0); NEUTROPHILS # (AUTO) 5.8 K/uL (1.8-7.7); NEUTROPHILS % (AUTO) 53.8 % (40.0-70.0); PLATELET COUNT (AUTO) 305 K/uL (150-450); RED BLOOD CELL COUNT(AUTO) 3.14 MIL/uL (4.50-5.90); RED CELL DISTRIBUTION WIDTH 17.4 % (11.5-14.5)
[2019-09-01] MEDS: PANTOPRAZOLE SODIUM 40 MG/VIAL IVP SCH ×2 (08:49→22:11)
[2019-09-01 08:50] LABS: D-DIMER 5.79 mg/L FEU (0.00-0.50)
[2019-09-01] MEDS: FLUCONAZOLE 100 MG TABLET PO SCH (08:50)
[2019-09-01] MEDS: VITAMIN B COMP/VIT C/FOLIC ACID CAPSULE PO SCH (08:50)
[2019-09-01] MEDS: INSULIN GLARGINE,HUM.REC.ANLOG 100 UNITS/ML SQ SCH ×2 (08:53→22:22)
[2019-09-01] MEDS: DOCUSATE SODIUM 100 MG/10 ML LIQUID UDCUP GT SCH ×2 (09:00→22:11)
[2019-09-01 09:44] LABS: BILIRUBIN,TOTAL 0.7 mg/dL (0.1-1.0); C-REACTIVE PROTEIN QUANT 2.21 mg/dL (0.00-0.30); CALCIUM, TOTAL 8.8 mg/dL (8.8-10.5); CREATININE 1.8 mg/dL (0.60-1.30); POTASSIUM 3.4 mmol/L (3.5-5.1); TOTAL PROTEIN, SERUM 7.5 g/dL (6.4-8.2)
[2019-09-01] MEDS ORDERED: POTASSIUM CHLORIDE 10 MEQ ER TABLET PO ONE (10:30)
[2019-09-01 11:17] VITALS: BP 122/73
[2019-09-01 16:12] VITALS: BP 134/72
[2019-09-01 17:35] LABS: GLUCOMETER DEV NAME(LOC) 5N.3; GLUCOSE,POINT OF CARE 155 MG/DL (70-110)
[2019-09-01 17:36] LABS: GLUCOMETER DEV NAME(LOC) 5N.3; GLUCOSE,POINT OF CARE 260 MG/DL (70-110)
[2019-09-01 20:13] LABS: GLUCOMETER DEV NAME(LOC) 5N.3; GLUCOSE,POINT OF CARE 234 MG/DL (70-110)
[2019-09-01 21:14] VITALS: BP 131/64
[2019-09-02] VITALS (7 sets, daily range): BP systolic 124–139; BP diastolic 71–85
[2019-09-02] MEDS: INSULIN LISPRO 100 UNITS/ML SQ PRN ×3 (05:29→17:44)
[2019-09-02 08:20] LABS: BILIRUBIN,TOTAL 0.7 mg/dL (0.1-1.0); C-REACTIVE PROTEIN QUANT 1.22 mg/dL (0.00-0.30); CALCIUM, TOTAL 8.7 mg/dL (8.8-10.5); CREATININE 1.82 mg/dL (0.60-1.30); POTASSIUM 3.9 mmol/L (3.5-5.1); TOTAL PROTEIN, SERUM 7.4 g/dL (6.4-8.2)
[2019-09-02] MEDS: HEPARIN SODIUM,PORCINE 5,000 UNITS/ML VIAL IVP PRN ×3 (08:59→17:43)
[2019-09-02] MEDS: DOCUSATE SODIUM 100 MG/10 ML LIQUID UDCUP GT SCH ×2 (09:00→20:24)
[2019-09-02] MEDS: VITAMIN B COMP/VIT C/FOLIC ACID CAPSULE PO SCH (09:00)
[2019-09-02] MEDS: PANTOPRAZOLE SODIUM 40 MG/VIAL IVP SCH ×2 (09:01→20:24)
[2019-09-02] MEDS: HEPARIN SODIUM 25000 UNITS/D5W 250 ML IV PRN (09:23)
[2019-09-02] MEDS: INSULIN GLARGINE,HUM.REC.ANLOG 100 UNITS/ML SQ SCH ×2 (09:24→20:34)
[2019-09-02 11:45] LABS: GLUCOMETER DEV NAME(LOC) 5N.3; GLUCOSE,POINT OF CARE 154 MG/DL (70-110)
[2019-09-02 11:45] LABS: GLUCOMETER DEV NAME(LOC) 5N.3; GLUCOSE,POINT OF CARE 247 MG/DL (70-110)
[2019-09-02 12:15] LABS: GLUCOMETER DEV NAME(LOC) 5S.2A; GLUCOSE,POINT OF CARE 239 MG/DL (70-110)
[2019-09-02] MEDS: ACETAMINOPHEN 325 MG TABLET PO PRN ×2 (14:09→20:50)
[2019-09-03] MEDS: HEPARIN SODIUM 25000 UNITS/D5W 250 ML IV PRN ×2 (01:28→10:13)
[2019-09-03 04:30] LABS: GLUCOMETER DEV NAME(LOC) 5S.2A; GLUCOSE,POINT OF CARE 254 MG/DL (70-110)
[2019-09-03 04:30] LABS: GLUCOMETER DEV NAME(LOC) 5S.2A; GLUCOSE,POINT OF CARE 207 MG/DL (70-110)
[2019-09-03 05:26] VITALS: BP 124/71
[2019-09-03] MEDS: INSULIN LISPRO 100 UNITS/ML SQ PRN ×4 (06:17→20:57)
[2019-09-03 07:08] LABS: BASOPHILS % (AUTO) 2.1 % (0.0-2.0); EOSINOPHILS % (AUTO) 11.9 % (1.0-6.0); HEMATOCRIT 26.9 % (41-53); HEMOGLOBIN 9.2 g/dL (13.5-17.5); LYMPHOCYTES # (AUTO) 2.2 K/uL (1.0-4.8); LYMPHOCYTES % (AUTO) 24.2 % (22.0-44.0); MEAN CORPUSCULAR HEMOGLOBIN 31.7 pg (26.0-34.0); MEAN CORPUSCULAR HGB CONC 34.2 G/dL (31.0-37.0); MEAN CORPUSCULAR VOLUME 92 fL (80-100); MONOCYTES # (AUTO) 0.8 K/uL (0.1-1.0); MONOCYTES % (AUTO) 8.6 % (2.0-9.0); NEUTROPHILS # (AUTO) 4.9 K/uL (1.8-7.7); NEUTROPHILS % (AUTO) 53.2 % (40.0-70.0); PLATELET COUNT (AUTO) 265 K/uL (150-450); RED BLOOD CELL COUNT(AUTO) 2.91 MIL/uL (4.50-5.90); RED CELL DISTRIBUTION WIDTH 17.3 % (11.5-14.5)
[2019-09-03 07:56] VITALS: BP 131/79
[2019-09-03 08:07] LABS: ALBUMIN 2.8 g/dL (3.4-5.0); BILIRUBIN,TOTAL 0.6 mg/dL (0.1-1.0); C-REACTIVE PROTEIN QUANT 0.64 mg/dL (0.00-0.30); CALCIUM, TOTAL 8.7 mg/dL (8.8-10.5); CREATININE 1.73 mg/dL (0.60-1.30); POTASSIUM 3.6 mmol/L (3.5-5.1)
[2019-09-03] MEDS: ACETAMINOPHEN 325 MG TABLET PO PRN ×2 (09:27→15:44)
[2019-09-03] MEDS: DOCUSATE SODIUM 100 MG/10 ML LIQUID UDCUP GT SCH ×2 (09:28→20:53)
[2019-09-03] MEDS: VITAMIN B COMP/VIT C/FOLIC ACID CAPSULE PO SCH (09:28)
[2019-09-03] MEDS: PANTOPRAZOLE SODIUM 40 MG/VIAL IVP SCH ×2 (09:28→20:42)
[2019-09-03] MEDS: INSULIN GLARGINE,HUM.REC.ANLOG 100 UNITS/ML SQ SCH ×2 (09:31→20:54)
[2019-09-03 10:59] VITALS: BP 147/66
[2019-09-03 16:10] VITALS: BP 122/78
[2019-09-03 20:00] VITALS: BP 132/75
[2019-09-04 00:23] VITALS: BP 139/78
[2019-09-04] MEDS: ACETAMINOPHEN 325 MG TABLET PO PRN (00:32)
[2019-09-04 04:55] VITALS: BP 111/55
[2019-09-04] MEDS: INSULIN LISPRO 100 UNITS/ML SQ PRN ×4 (06:30→21:41)
[2019-09-04 07:56] VITALS: BP 133/73
[2019-09-04 08:14] LABS: GLUCOMETER DEV NAME(LOC) 5S.2A; GLUCOSE,POINT OF CARE 184 MG/DL (70-110)
[2019-09-04 08:14] LABS: GLUCOMETER DEV NAME(LOC) 5S.2A; GLUCOSE,POINT OF CARE 209 MG/DL (70-110)
[2019-09-04 08:14] LABS: GLUCOMETER DEV NAME(LOC) 5N.3; GLUCOSE,POINT OF CARE 149 MG/DL (70-110)
[2019-09-04 08:14] LABS: GLUCOMETER DEV NAME(LOC) 5S.2A; GLUCOSE,POINT OF CARE 209 MG/DL (70-110)
[2019-09-04 08:15] LABS: GLUCOMETER DEV NAME(LOC) 5S.2A; GLUCOSE,POINT OF CARE 150 MG/DL (70-110)
[2019-09-04] MEDS: DOCUSATE SODIUM 100 MG/10 ML LIQUID UDCUP GT SCH ×2 (09:00→21:34)
[2019-09-04] MEDS: VITAMIN B COMP/VIT C/FOLIC ACID CAPSULE PO SCH (09:20)
[2019-09-04] MEDS: PANTOPRAZOLE SODIUM 40 MG/VIAL IVP SCH ×2 (09:20→21:34)
[2019-09-04] MEDS: INSULIN GLARGINE,HUM.REC.ANLOG 100 UNITS/ML SQ SCH ×2 (09:25→21:40)
[2019-09-04 11:07] VITALS: BP 144/80
[2019-09-04] MEDS: HEPARIN SODIUM 25000 UNITS/D5W 250 ML IV PRN (11:32)
[2019-09-04 11:57] LABS: GLUCOMETER DEV NAME(LOC) 5S.2A; GLUCOSE,POINT OF CARE 260 MG/DL (70-110)
[2019-09-04 16:24] VITALS: BP 140/74
[2019-09-04] MEDS: GuaiFENesin/CODEINE [SUGAR FREE] 200-20MG/10 ML SYRUP UDCUP PO PRN (17:57)
[2019-09-04 20:34] LABS: GLUCOMETER DEV NAME(LOC) 5N.3; GLUCOSE,POINT OF CARE 239 MG/DL (70-110)
[2019-09-04 20:38] VITALS: BP 130/81
[2019-09-05] MEDS: GuaiFENesin/CODEINE [SUGAR FREE] 200-20MG/10 ML SYRUP UDCUP PO PRN ×2 (00:10→15:04)
[2019-09-05 00:24] VITALS: BP 124/62
[2019-09-05 02:49] LABS: GLUCOMETER DEV NAME(LOC) 5N.3; GLUCOSE,POINT OF CARE 247 MG/DL (70-110)
[2019-09-05] MEDS: HEPARIN SODIUM 25000 UNITS/D5W 250 ML IV PRN (03:46)
[2019-09-05 05:53] LABS: GLUCOMETER DEV NAME(LOC) 5N.3; GLUCOSE,POINT OF CARE 122 MG/DL (70-110)
[2019-09-05 06:16] VITALS: BP 135/75
[2019-09-05 07:41] LABS: ALBUMIN 3.1 g/dL (3.4-5.0); BILIRUBIN,TOTAL 0.6 mg/dL (0.1-1.0); C-REACTIVE PROTEIN QUANT 1.56 mg/dL (0.00-0.30); CALCIUM, TOTAL 9.1 mg/dL (8.8-10.5); CREATININE 1.77 mg/dL (0.60-1.30); POTASSIUM 3.8 mmol/L (3.5-5.1); TOTAL PROTEIN, SERUM 7.5 g/dL (6.4-8.2)
[2019-09-05] MEDS: DOCUSATE SODIUM 100 MG/10 ML LIQUID UDCUP GT SCH ×3 (09:00→21:00)
[2019-09-05 09:06] VITALS: BP 126/70
[2019-09-05] MEDS: PANTOPRAZOLE SODIUM 40 MG/VIAL IVP SCH ×2 (09:56→20:47)
[2019-09-05] MEDS: VITAMIN B COMP/VIT C/FOLIC ACID CAPSULE PO SCH (09:56)
[2019-09-05] MEDS: INSULIN GLARGINE,HUM.REC.ANLOG 100 UNITS/ML SQ SCH ×2 (10:00→21:04)
[2019-09-05] MEDS: INSULIN LISPRO 100 UNITS/ML SQ PRN ×3 (13:39→21:04)
[2019-09-05 14:43] LABS: APPEARANCE,URINE CLEAR (CLEAR); BILIRUBIN,URINE NEGATIVE (NEGATIVE); GLUCOSE, URINE (UA) NEGATIVE (NEGATIVE); KETONES,URINE NEGATIVE (NEGATIVE); LEUKOCYTE ESTERASE ,URINE MODERATE (NEGATIVE); NITRATE,URINE NEGATIVE (NEGATIVE); OCCULT BLOOD,URINE NEGATIVE (NEGATIVE); PH,URINE 6.5 (5.0-8.0); PROTEIN,URINE NEGATIVE (NEGATIVE); UROBILINOGEN,URINE 0.2 mg/dL (<=1.0)
[2019-09-05 14:46] LABS: RBC,URINE None Seen /HPF (0-2)
[2019-09-05 14:47] LABS: BACTERIA,URINE None Seen /HPF (None Seen)
[2019-09-05] MEDS: ACETAMINOPHEN 325 MG TABLET PO PRN (15:04)
[2019-09-05 16:25] VITALS: BP 137/79
[2019-09-05 20:10] VITALS: BP_SYST 138; BP_SYST 150; BP_DIAS 111; BP_DIAS 73
[2019-09-05 20:33] LABS: GLUCOMETER DEV NAME(LOC) 5N.3; GLUCOSE,POINT OF CARE 213 MG/DL (70-110)
[2019-09-05 20:33] LABS: GLUCOMETER DEV NAME(LOC) 5N.3; GLUCOSE,POINT OF CARE 274 MG/DL (70-110)
[2019-09-05] MEDS: APIXABAN 5 MG TABLET PO SCH (20:47)
[2019-09-06] VITALS (7 sets, daily range): BP systolic 128–143; BP diastolic 63–80
[2019-09-06] MEDS: GuaiFENesin/CODEINE [SUGAR FREE] 200-20MG/10 ML SYRUP UDCUP PO PRN ×2 (00:31→17:43)
[2019-09-06] MEDS: INSULIN LISPRO 100 UNITS/ML SQ PRN ×3 (05:50→20:36)
[2019-09-06 06:10] LABS: GLUCOMETER DEV NAME(LOC) 5S.2A; GLUCOSE,POINT OF CARE 241 MG/DL (70-110)
[2019-09-06 06:51] LABS: GLUCOMETER DEV NAME(LOC) 5N.3; GLUCOSE,POINT OF CARE 184 MG/DL (70-110)
[2019-09-06] MEDS: VITAMIN B COMP/VIT C/FOLIC ACID CAPSULE PO SCH (09:03)
[2019-09-06] MEDS: APIXABAN 5 MG TABLET PO SCH ×2 (09:03→20:38)
[2019-09-06] MEDS: PANTOPRAZOLE SODIUM 40 MG/VIAL IVP SCH ×2 (09:03→20:37)
[2019-09-06] MEDS: DOCUSATE SODIUM 100 MG/10 ML LIQUID UDCUP GT SCH ×2 (09:03→20:37)
[2019-09-06] MEDS: INSULIN GLARGINE,HUM.REC.ANLOG 100 UNITS/ML SQ SCH ×2 (09:05→20:36)
[2019-09-06] MEDS: ACETAMINOPHEN 325 MG TABLET PO PRN ×2 (09:30→17:52)
[2019-09-06 10:51] LABS: ABG A-A DIFF O2 111.1 mmHg (10-20.0); ABG BASE EXCESS 2.2 mmol/L (-2.0-3.0); ABG CARBOXYHEMOGLOBIN 2.3 % (0.0-1.5); ABG HCO3 26.6 mmol/L (22.0-26.0); ABG METHEMOGLOBIN 0.3 % (0.0-1.5); ABG OXYGEN CONTENT 19.4 mL/dL (15.0-23.0); ABG OXYGEN SATURATION 94.9 % (95.0-98.0); ABG OXYHEMOGLOBIN 92.4 % (94.0-100.0); ABG PCO2 36 mmHg (35-45); ABG PH 7.478 (7.35-7.450); ABG TOTAL HEMOGLOBIN 14.9 G/dL (12.0-18.0); PO2, ARTERIAL BG 75.5 mmHg (84.0-92.0); SOURCE, BLOOD GAS ARTERIAL; TEMPERATURE, FAHRENHEIT, BG 98.6 FAHREN (96.0-98.6)
[2019-09-06 10:52] LABS: O2 DEVICE,BLOOD GAS NC (ROOM AIR); SITE, BLOOD GAS LFT RADIAL
[2019-09-06 12:20] LABS: GLUCOMETER DEV NAME(LOC) 5N.3; GLUCOSE,POINT OF CARE 237 MG/DL (70-110)
[2019-09-06 18:06] LABS: GLUCOMETER DEV NAME(LOC) 5S.2A; GLUCOSE,POINT OF CARE 274 MG/DL (70-110)
[2019-09-06] MEDS: METOPROLOL TARTRATE 25 MG TABLET PO SCH (20:38)
[2019-09-07 03:45] VITALS: BP 140/78
[2019-09-07] MEDS: INSULIN LISPRO 100 UNITS/ML SQ PRN ×2 (06:13→12:13)
[2019-09-07 07:18] LABS: BASOPHILS % (AUTO) 0.5 % (0.0-2.0); HEMATOCRIT 27.8 % (41-53); HEMOGLOBIN 9.2 g/dL (13.5-17.5); LYMPHOCYTES # (AUTO) 1.8 K/uL (1.0-4.8); LYMPHOCYTES % (AUTO) 10.6 % (22.0-44.0); MEAN CORPUSCULAR HEMOGLOBIN 30.8 pg (26.0-34.0); MEAN CORPUSCULAR HGB CONC 33.2 G/dL (31.0-37.0); MEAN CORPUSCULAR VOLUME 93 fL (80-100); MONOCYTES # (AUTO) 1.9 K/uL (0.1-1.0); MONOCYTES % (AUTO) 10.8 % (2.0-9.0); NEUTROPHILS # (AUTO) 12.5 K/uL (1.8-7.7); NEUTROPHILS % (AUTO) 72.1 % (40.0-70.0); RED CELL DISTRIBUTION WIDTH 17.7 % (11.5-14.5)
[2019-09-07 07:30] VITALS: BP 133/73
[2019-09-07 07:46] LABS: GLUCOMETER DEV NAME(LOC) 5N.3; GLUCOSE,POINT OF CARE 218 MG/DL (70-110)
[2019-09-07 07:46] LABS: GLUCOMETER DEV NAME(LOC) 5N.3; GLUCOSE,POINT OF CARE 161 MG/DL (70-110)
[2019-09-07 07:56] LABS: BILIRUBIN,TOTAL 0.6 mg/dL (0.1-1.0); C-REACTIVE PROTEIN QUANT 11.24 mg/dL (0.00-0.30); CREATININE 1.59 mg/dL (0.60-1.30); POTASSIUM 3.8 mmol/L (3.5-5.1); TOTAL PROTEIN, SERUM 7.5 g/dL (6.4-8.2)
[2019-09-07] MEDS: METOPROLOL TARTRATE 25 MG TABLET PO SCH (09:00)
[2019-09-07] MEDS: VITAMIN B COMP/VIT C/FOLIC ACID CAPSULE PO SCH (09:00)
[2019-09-07] MEDS: DOCUSATE SODIUM 100 MG/10 ML LIQUID UDCUP GT SCH (09:00)
[2019-09-07] MEDS: APIXABAN 5 MG TABLET PO SCH (09:00)
[2019-09-07] MEDS: PANTOPRAZOLE SODIUM 40 MG/VIAL IVP SCH (09:01)
[2019-09-07] MEDS: INSULIN GLARGINE,HUM.REC.ANLOG 100 UNITS/ML SQ SCH (09:10)
[2019-09-07 11:26] LABS: PLATELET COUNT (AUTO) 268 K/uL (150-450)
[2019-09-07 11:41] VITALS: BP 129/75
[2019-09-07] MEDS ORDERED: APIX5TAB PO (13:17)
[2019-09-07] MEDS ORDERED: INSLAN SQ (13:18)
[2019-09-07] MEDS ORDERED: METO25 PO (13:19)
[2019-09-07] MEDS ORDERED: PANT-31 PO (13:19)
[2019-09-07] MEDS ORDERED: VITA0.4T8 PO (13:21)
[2019-09-07] MEDS ORDERED: ACET-66 PO (13:22)
[2019-09-07] MEDS ORDERED: INSU100V SQ (13:23)
[2019-09-07 17:22] LABS: GLUCOMETER DEV NAME(LOC) 5N.3; GLUCOSE,POINT OF CARE 165 MG/DL (70-110)
[2019-09-07 17:22] LABS: GLUCOMETER DEV NAME(LOC) 5N.3; GLUCOSE,POINT OF CARE 295 MG/DL (70-110)
== END 2019-09-07 16:30 | DRG 207 ==
LOC: EMS 01:35 → ICUN 08:00 → 5S 15:32 → ICUN 08-06 05:15 → ICU 08-22 19:00 → 5N 08-24 16:55
PROVIDERS: ADMIT Internal Medicine; ATTEND Internal Medicine
PROC: 5A1955Z Respiratory Ventilation, Greater than 96 Consecutive Hours (ICD-10-PCS; principal; 2019-08-06)
PROC: 0BH17EZ Insertion of Endotracheal Airway into Trachea, Via Natural or Artificial Opening (ICD-10-PCS; 2019-08-06)
PROC: 30243K1 Transfusion of Nonautologous Frozen Plasma into Central Vein, Percutaneous Approach (ICD-10-PCS; 2019-08-06)
PROC: 5A1D70Z Performance of Urinary Filtration, Intermittent, Less than 6 Hours Per Day (ICD-10-PCS; 2019-08-15)
PROC: 05HN33Z Insertion of Infusion Device into Left Internal Jugular Vein, Percutaneous Approach (ICD-10-PCS; 2019-08-15)
PROC: 5A1D70Z Performance of Urinary Filtration, Intermittent, Less than 6 Hours Per Day (ICD-10-PCS; 2019-08-17)
PROC: 5A1D70Z Performance of Urinary Filtration, Intermittent, Less than 6 Hours Per Day (ICD-10-PCS; 2019-08-19)
PROC: 5A1D70Z Performance of Urinary Filtration, Intermittent, Less than 6 Hours Per Day (ICD-10-PCS; 2019-08-22)
PROC: 5A1D70Z Performance of Urinary Filtration, Intermittent, Less than 6 Hours Per Day (ICD-10-PCS; 2019-08-23)
PROC: 30233N1 Transfusion of Nonautologous Red Blood Cells into Peripheral Vein, Percutaneous Approach (ICD-10-PCS; 2019-08-23)
PROC: 5A1D70Z Performance of Urinary Filtration, Intermittent, Less than 6 Hours Per Day (ICD-10-PCS; 2019-08-24)
PROC: B54MZZA Ultrasonography of Right Upper Extremity Veins, Guidance (ICD-10-PCS; 2019-08-24)
PROC: 05HY33Z Insertion of Infusion Device into Upper Vein, Percutaneous Approach (ICD-10-PCS; 2019-08-24)
PROC: 5A1D70Z Performance of Urinary Filtration, Intermittent, Less than 6 Hours Per Day (ICD-10-PCS; 2019-08-25)
DX: U07.1 COVID-19 (principal); J12.89 Other viral pneumonia; J96.01 Acute respiratory failure with hypoxia; N18.6 End stage renal disease; I82.401 Acute embolism and thrombosis of unspecified deep veins of right lower extremity; D62 Acute posthemorrhagic anemia; N17.9 Acute kidney failure, unspecified; E87.1 Hypo-osmolality and hyponatremia; E87.0 Hyperosmolality and hypernatremia; G93.40 Encephalopathy, unspecified; E87.4 Mixed disorder of acid-base balance; I13.11 Hypertensive heart and chronic kidney disease without heart failure, with stage 5 chronic kidney disease, or end stage renal disease; I82.441 Acute embolism and thrombosis of right tibial vein; I82.619 Acute embolism and thrombosis of superficial veins of unspecified upper extremity; R57.9 Shock, unspecified; D68.69 Other thrombophilia; I74.2 Embolism and thrombosis of arteries of the upper extremities; I82.412 Acute embolism and thrombosis of left femoral vein; E66.9 Obesity, unspecified; E78.5 Hyperlipidemia, unspecified; E11.22 Type 2 diabetes mellitus with diabetic chronic kidney disease; S30.1XXA Contusion of abdominal wall, initial encounter; D72.823 Leukemoid reaction; E11.51 Type 2 diabetes mellitus with diabetic peripheral angiopathy without gangrene; E87.6 Hypokalemia; R19.7 Diarrhea, unspecified; R34 Anuria and oliguria; R53.81 Other malaise; R82.71 Bacteriuria; M79.89 Other specified soft tissue disorders; R94.31 Abnormal electrocardiogram [ECG] [EKG]; E87.5 Hyperkalemia; Z83.3 Family history of diabetes mellitus; Z86.73 Personal history of transient ischemic attack (TIA), and cerebral infarction without residual deficits; Z99.2 Dependence on renal dialysis; Z79.899 Other long term (current) drug therapy; Z79.01 Long term (current) use of anticoagulants; Z79.84 Long term (current) use of oral hypoglycemic drugs; Z91.018 Allergy to other foods; Z68.33 Body mass index [BMI] 33.0-33.9, adult; Z98.890 Other specified postprocedural states; Z79.82 Long term (current) use of aspirin; Z79.2 Long term (current) use of antibiotics
CPT/HCPCS: 36245; 36569; 36600; 70450; 70551; 73701; 73706; 74018; 74177; 76700; 76937; 82271; 82728; 82805; 83605; 83615; 83735; 83935; 84100; 84132; 84145; 84300; 84478; 85007; 85014; 85018; 85379; 85384; 86140; 86480; 86635; 86706; 86707; 86738; 86850; 86900; 86901; 86923; 86927; 87040; 87070; 87081; 87086; 87205; 87340; 87350; 87449; 87804; 87899; 92526; 92610; 93005; 93306; 93925; 93926; 93930; 93970; 93971; 94003; 94640; 95816; 97110; 97162; 97166; 97530; 97535; 99291; C9113; G0378; J0360; J0456; J0692; J0696; J0878; J1450; J1642; J1644; J1650; J1815; J1940; J2060; J2250; J2270; J2704; J3010; J3370; J3475; J3480; J3490; J7030; J7040; J7050; J7060; P9016; P9046